=== PATIENT | female | born 1985 | race African-American/Black ===

== ENCOUNTER 2020-06-30 03:30 | Outpatient (REF) | payer MEDICAID, SELFPAY ==
[2020-06-30 15:08] LABS: Abs Immature Grans 0.04 10^3/uL (0.0-0.06); Absolute Basophil Count 0.03 10^3/uL (0.0-0.2); Absolute Eosinophil Count 0.45 10^3/uL (0.0-0.7); Absolute Lymphocyte Count 2.14 10^3/uL (1.2-3.4); Absolute Monocyte Count 0.44 10^3/uL (0.1-0.8); Absolute Neutrophil Count 4.99 10^3/uL (1.2-6.7); Basophils % 0.4; Eosinophils % 5.6; HCT 41.2 % (36.0-46.0); HGB 13.5 g/dL (11.2-15.7); Immature Grans % 0.5; Lymphocytes % 26.5; MCH 26.8 pg (27.0-33.0); MCHC 32.8 % (32.0-36.0); MCV 81.9 fL (80-95); MPV 9.4 fL (8.0-11.0); Monocytes % 5.4; Neutrophils % 61.6; Nucleated RBC 0 %; Platelet Count 305 10^3/uL (130-400); RBC 5.03 10^6/uL (3.93-5.22); RDW 12.7 % (11.7-14.6); RDW-SD 37.7 fL; WBC 8.09 10^3/uL (4.4-10.8)
[2020-06-30 15:24] LABS: Glucose,1 Hr (Glucola) 110 mg/dL (80-140)
[2020-06-30 15:24] LABS: Kit/Specimen SENT
[2020-06-30 17:29] LABS: FREE T4 0.83 ng/dL (0.76-1.46)
[2020-07-01 09:41] LABS: Hepatitis C Ab w Rflx HCV PCR Negative (Negative)
[2020-07-01 09:43] LABS: Hepatitis B Surface Ag Negative (Negative)
[2020-07-01 10:22] LABS: HIV-1/2 Ag & Ab Screen Negative (Negative)
[2020-07-01 11:45] LABS: Rubella IgG Ab (UVM) Positive (See Note); Varicella IgG Antibody Positive (See Note)
[2020-07-02 11:30] LABS: Syphilis Total Ab w/Reflex Nonreactive (Nonreactive)
[2020-07-07 17:50] LABS: Result Summary NEGATIVE; Specimen WB Whole Blood
== END 2020-06-30 03:31 | disposition home or self-care (01) ==
LOC: LBO 03:30
PROVIDERS: Visit Provider Advanced Practice Midwife
DX: Z34.91 Encounter for supervision of normal pregnancy, unspecified, first trimester (principal); Z11.4 Encounter for screening for human immunodeficiency virus [HIV]; Z11.59 Encounter for screening for other viral diseases; Z01.84 Encounter for antibody response examination
CPT/HCPCS: 36415; 82950; 86787; 86803; 86850; 86900; 86901; 87340; 87389; 81220; 84439; 84443; 85025; 86762; 86780

== ENCOUNTER 2020-06-30 16:03 | Outpatient (REF) | payer MEDICAID, SELFPAY ==
--- NOTE | 2020-06-30 14:00 | PAPFT_PTH ---
PATIENT: Douglas Forrester LOC: [facility] U#:[id number] AGE/SX: 34/F ROOM: RE06/30/[address]: Tammie Holt : 1985 BED: DIS: 06/30/2020 SPEC #: [id number] RECD: 06/30/20 18:14 STATUS: ALOK REDaren #: [id number] CONSUELO: 06/30/20 14:[address]: Nata Rogers DEPT: [facility] Cytology RECD BY: Mahnaz Martin Tissues: 1 - CX/ENDOCX FOR PAP SMEARS Procedures: PAP THIN PREP/UVM Screening HPV DNA PROBE Comments: [id number]
[2020-06-30 19:15] LABS: *AMPHETAMINES SCREEN URINE Negative (Negative); *BARBITURATES SCREEN URINE Negative (Negative); *BENZODIAZEPINES SCREEN URINE Negative (Negative); Cannabinoids THC Negative (Negative); Cocaine Screen,Urine Negative (Negative); METHADONE URINE SCREEN Negative (Negative); OPIATES URINE SCREEN Negative (Negative)
[2020-06-30 19:27] LABS: Tricyclic Antidepressants Negative (Negative)
[2020-07-04 15:46] LABS: Chlamydia Result Negative (Negative); GC Result Negative (Negative)
[2020-07-06 12:25] LABS: Buprenorphine Negative ng/mL (Cutoff: 5.0); Norbuprenorphine Negative ng/mL (Cutoff: 2.5)
== END 2020-06-30 16:04 | disposition home or self-care (01) ==
LOC: LBN 16:03
PROVIDERS: Visit Provider Advanced Practice Midwife
DX: Z34.91 Encounter for supervision of normal pregnancy, unspecified, first trimester (principal); N89.8 Other specified noninflammatory disorders of vagina; Z11.3 Encounter for screening for infections with a predominantly sexual mode of transmission; Z12.4 Encounter for screening for malignant neoplasm of cervix; Z36.89 Encounter for other specified antenatal screening; Z11.51 Encounter for screening for human papillomavirus (HPV); R87.810 Cervical high risk human papillomavirus (HPV) DNA test positive
CPT/HCPCS: 80307; 87491; 87591; 88142; 87086; 87480; 87510; 87624; 87660

== ENCOUNTER 2020-09-14 01:52 | Outpatient (CLI) | payer MEDICAID, SELFPAY ==
--- NOTE | 2020-09-14 08:30 | DI.US_ITS ---
Exam(s) US OB 2-3 TRIMESTER EXAM: US OB 2-3 TRIMESTER CLINICAL HISTORY: ,z34.90. TECHNIQUE: Transabdominal obstetrical ultrasound was performed. COMPARISON: No exams were available for comparison FINDINGS: There is a single viable intrauterine gestation with cardiac activity identified-145 bpm. Amniotic fluid: There is a normal amount of amniotic fluid. Placental location: The placenta is anterior grade 1,with no evidence of placenta previa.This is from the tip of the placenta to the internal cervical os is 2.6 cm on today's study Near the level the fundus there is a thin band traversing the amniotic fluid noted. This does not ap pear to impede the movement. ANATOMY: A 3 vessel umbilical cord is seen. A four-chamber cardiac view was obtained. Right and left ventricular outflow tracts were imaged. There are no obvious abnormalities of the spinal column evident. There is no obvious abnormal ity of the anterior abdominal wall. stomach and urinary bladder are identified and there is no evidence of hydronephrosis. No abnormalities of the upper lip region are identified. No evidence of choroid plexus cysts i n the brain. Dating parameters place this at approximately 23 gestational age. BPD measures 22 weeks and 4 days HC measures 23 weeks and 1 day AC measures 23 weeks and 2 days FL measures 23 weeks and 1 day Estimated weight is 569 gm-1 pound 4 ounces Fetus is at the 66th percentile on the Hadlock scale. IMPRESSION:: Single viable intrauterine gestation which is approximately 23 weeks gestational age, i mplying an ABRAN of January 11, 2021. There are no obvious anomalies evident on today's study. There is a thin band of non tiss ue near the fundus of the uterus incidentally noted. This does not appear to impede motion. The placenta is anterior with no evidence of placenta previa. There is a normal amount of amniotic fluid. DATA REPOSITORY:
== END 2020-09-14 02:12 ==
PROVIDERS: Visit Provider Advanced Practice Midwife
DX: Z34.92 Encounter for supervision of normal pregnancy, unspecified, second trimester (principal); Z3A.23 23 weeks gestation of pregnancy
CPT/HCPCS: 76805

== ENCOUNTER 2020-11-14 02:20 | Outpatient (CLI) | payer MEDICAID, SELFPAY ==
[2020-11-14 15:16] LABS: HCT 34.9 % (36.0-46.0); HGB 11.3 g/dL (11.2-15.7); MCH 26.7 pg (27.0-33.0); MCHC 32.4 % (32.0-36.0); MCV 82.5 fL (80-95); MPV 9.6 fL (8.0-11.0); Platelet Count 326 10^3/uL (130-400); RBC 4.23 10^6/uL (3.93-5.22); RDW 12.8 % (11.7-14.6); RDW-SD 38.3 fL; WBC 6.46 10^3/uL (4.4-10.8)
[2020-11-14 15:20] LABS: Glucose,1 Hr (Glucola) 127 mg/dL (80-140)
[2020-11-14 16:05] LABS: TSH 1.04 uIU/mL (0.36-3.74)
== END 2020-11-14 02:21 | disposition home or self-care (01) ==
LOC: LBO 02:20
PROVIDERS: Advanced Practice Midwife; Visit Provider Advanced Practice Midwife
DX: Z34.93 Encounter for supervision of normal pregnancy, unspecified, third trimester (principal); Z3A.31 31 weeks gestation of pregnancy
CPT/HCPCS: 36415; 82950; 85027; 84439; 84443

== ENCOUNTER 2020-12-16 16:34 | Outpatient (REF) | payer MEDICAID, SELFPAY ==
[2020-12-16 21:04] LABS: *AMPHETAMINES SCREEN URINE Negative (Negative); *BARBITURATES SCREEN URINE Negative (Negative); *BENZODIAZEPINES SCREEN URINE Negative (Negative); Cannabinoids THC Negative (Negative); Cocaine Screen,Urine Negative (Negative); METHADONE URINE SCREEN Negative (Negative); OPIATES URINE SCREEN Negative (Negative); Tricyclic Antidepressants Negative (Negative)
[2020-12-22 13:39] LABS: Buprenorphine Negative ng/mL (Cutoff: 5.0)
== END 2020-12-16 16:35 | disposition home or self-care (01) ==
LOC: LBN 16:34
PROVIDERS: Visit Provider Advanced Practice Midwife
DX: Z34.93 Encounter for supervision of normal pregnancy, unspecified, third trimester (principal); Z36.85 Encounter for antenatal screening for Streptococcus B; Z3A.35 35 weeks gestation of pregnancy
CPT/HCPCS: 80307; 87081

== ENCOUNTER 2021-01-06 18:31 | Outpatient (REF) | payer MEDICAID, SELFPAY ==
[2021-01-06 19:18] LABS: PROTEIN 19.9 mg/dL
[2021-01-06 19:24] LABS: COMMENT (LAB VIEW ONLY) 86.86 mg/dL; Prot/Crea Ur Ratio 0.22
== END 2021-01-06 18:32 | disposition home or self-care (01) ==
LOC: LBN 18:31
PROVIDERS: Visit Provider Advanced Practice Midwife
DX: O12.03 Gestational edema, third trimester (principal); Z3A.38 38 weeks gestation of pregnancy
CPT/HCPCS: 82565; 84156

== ENCOUNTER 2021-01-11 15:52 | Outpatient (CLI) | payer MEDICAID, SELFPAY ==
[2021-01-11 16:15] VITALS: BP 132/92; PULSE 101; TEMP 36.8
[2021-01-11 16:17] VITALS: BP 132/92; PULSE 101; TEMP 36.8
[2021-01-11 16:26] VITALS: BP 140/91; PULSE 108
[2021-01-11 16:39] VITALS: BP 134/88; PULSE 99
[2021-01-11 16:40] LABS: HCT 32.4 % (36.0-46.0); HGB 10.3 g/dL (11.2-15.7); MCH 24.8 pg (27.0-33.0); MCHC 31.8 % (32.0-36.0); MCV 78.1 fL (80-95); Platelet Count 326 10^3/uL (130-400); RBC 4.15 10^6/uL (3.93-5.22); RDW 14.2 % (11.7-14.6); RDW-SD 40.1 fL; WBC 6.82 10^3/uL (4.4-10.8)
[2021-01-11 16:53] LABS: ALT 13 U/L (14-59); AST 11 U/L (15-37); Albumin 2.6 g/dL (3.4-5.0); Alkaline Phosphatase 120 U/L (46-116); Anion Gap 10.7 mmol/L (3-11); BUN 4 mg/dL (7-18); Bilirubin, Total 0.3 mg/dL (0.2-1.0); CO2 22.3 mmol/L (21.0-32.0); CREATININE 0.6 mg/dL (0.55-1.02); Calcium 8.5 mg/dL (8.5-10.1); Chloride 106 mmol/L (98-107); Glucose 94 mg/dL (74-106); Potassium 3.5 mmol/L (3.5-5.1); Sodium 139 mmol/L (136-145); Total Protein 6.7 g/dL (6.4-8.2); Uric Acid 6.2 mg/dL (2.6-6.0)
[2021-01-11 17:16] LABS: PROTEIN < 6.0 mg/dL
[2021-01-11 17:19] LABS: COMMENT (LAB VIEW ONLY) 94.22 mg/dL
--- NOTE | 2021-01-11 17:52 | W.OBNST ---
Date of service: 01/11/21 Time of Service: 17:53 NST Evaluation Reason for NST Reasons for Nonstress Test: GESTATIONAL HYPERTENSION Gestational Age Gestational Age in Weeks and Days: 39 Weeks and 5Days Test and Monitor Explained Test/Monitor Explained: Test Explained, Monitor Explained and Patient Verbalized Understanding Vital Signs Blood Pressure: 132/92 Pulse: 101 Temperature: 98.2 F NST Information Date on Monitor: 01/11/21 Time on Monitor: 16:06 Date off Monitor: 01/11/21 Time off Monitor: 16:41 Total Time on Monitor: 35 NST Interventions: PO Hydration and Other NST Evaluation Patient States Movement: Present FHR Baseline: 130 Variability: Moderate 6-25 bpm Accelerations: 15x15 and 10x10 Decelerations: None NST Results: Reactive Note NST Note Note: preeclampsia labs sent and all WNLSindy Ibrahima was instructed to return in 4 days for B.P. check and NST. Signs of preeclampsia reviewed. NST Reviewed and Verified by: Tammie Holt
[2021-01-11 17:54] VITALS: BP 132/92; PULSE 101; TEMP 36.8
== END 2021-01-11 16:50 | disposition home or self-care (01) ==
LOC: BCD 15:53 → OBS 16:03
PROVIDERS: Visit Provider Advanced Practice Midwife
DX: O13.3 Gestational [pregnancy-induced] hypertension without significant proteinuria, third trimester (principal); Z3A.39 39 weeks gestation of pregnancy
CPT/HCPCS: 36415; 80053; 85027; 59025; 82565; 84156; 84550

== ENCOUNTER 2021-01-13 13:25 | Outpatient (CLI) | payer MEDICAID, SELFPAY ==
[2021-01-13] VITALS (8 sets, daily range): BP systolic 116–129; BP diastolic 71–88; PULSE 100–112; TEMP 36.7; O2SAT 99
--- NOTE | 2021-01-13 14:53 | W.OBNST ---
Date of service: 01/13/21 Time of Service: 14:53 NST Evaluation Reason for NST Reasons for Nonstress Test: GESTATIONAL HYPERTENSION Reason for NST Other: Edema Gestational Age Gestational Age in Weeks and Days: 40 Weeks and 0Days Test and Monitor Explained Test/Monitor Explained: Test Explained, Monitor Explained and Patient Verbalized Understanding Vital Signs Blood Pressure: 123/88 Pulse: 100 Temperature: 98.1 F NST Information Date on Monitor: 01/13/21 Time on Monitor: 13:10 Date off Monitor: 01/13/21 Time off Monitor: 14:40 Total Time on Monitor: 90 NST Interventions: None NST Evaluation Patient States Movement: Present FHR Baseline: 125 Variability: Moderate 6-25 bpm Accelerations: 15x15 Decelerations: None Note NST Note Note: serial B.P.s taken and all WNL. No evidence of labor. cervix 1 /50/-2. Induction planned for tomorrow morning if staffing allows. NST Reviewed and Verified by: Tammie Holt
[2021-01-13 15:08] LABS: PROTEIN < 6.0 mg/dL
[2021-01-13 15:09] LABS: COMMENT (LAB VIEW ONLY) 64.81 mg/dL
== END 2021-01-13 14:48 | disposition home or self-care (01) ==
LOC: BCD 13:26 → OBS 13:27
PROVIDERS: Advanced Practice Midwife; Visit Provider Obstetrics & Gynecology
DX: O13.3 Gestational [pregnancy-induced] hypertension without significant proteinuria, third trimester (principal); Z3A.40 40 weeks gestation of pregnancy
CPT/HCPCS: 59025; 82565; 84156

== ENCOUNTER 2021-01-14 14:11 | Inpatient (IN) | payer MEDICAID, SELFPAY ==
[2021-01-14 14:19] VITALS: BP 149/89; BP 149/90; PULSE 114; RESP 16; TEMP 36.6; TEMP 36.7; O2SAT 98
--- NOTE | 2021-01-14 14:21 | HPE_ITS ---
Date of service: 01/14/21 Time of Service: 14:21 Assessment and Plan Assessment and plan (1) Elective induction of labor planned: Status: Acute Assessment and plan: Admit to Center. Comfort measures. cervical ripening options reviewed and will start misoprostol for cervical ripening, Covid- 19 test. Anticipate . (2) Edema during : Status: Acute OB-HPI Labor/Delivery History of Present Illness Reason for Visit: gestional hypertension Chief Complaint: Scheduled Induction of Labor Indication for Induction: Gestational Hypertension. ABRAN Calculator Estimated Delivery Date Method Current WG Current Estimate 01/13/21 Ultrasound #1 40w 1d Other Estimates 12/18/20 LMP (Certain) 43w 6d History of Present Expected Delivery Route/Plan - CNM, oralia Rosario FOB/saravanan - Alexis Powers (has 3 yo daughter in [place]) BG Sandeep Olivera Prefers epidural. Labor support will be FOB, also possibly her mother, Camille, from [place] GBS negative Specific Issues/Plan 1. Low dose ASA @ 12 wks for >10 yrs since last , BMI> 30 & ethnicity- Did not start ASA, enc'ed again to start 08/22/20 1a. Started taking it 09/14/20 2. Desires Corinne and CF testing - Would like gender results mailed to her mother 2a. Corinne LP X3 (gender shared with her Mother per her request) female, CF negative 3. Elevated BMI - Early GTT-110, 1-hr GTT 127 at 28 weeks. 4. Asthma - inhaler e-scribed, PCP enrollment recommended. 5. Negative Pap. with pos. HPV on Pap, discussed with patient. 6. Both pt and FOB and her mother are fully vaccinated. 7. TSH 0.20, T4 0.83, repeat at 28 weeks- T4 1.04/ TSH 0.90. 8. Hgb by Fingerstick 9.0 - serum cbc ordered 8a.repeat fingerstick hgb 11.1 on 12/23 PFSH Medical History (Updated 01/14/21 @ 15:01 by Tammie Holt CNM) Positive test Surgical History S/P appendectomy age 17 Family History (Updated 08/22/20 @ 14:48 by Tammie Holt CNM) Mother Hypertension Maternal Grandmother Hypertension Maternal Aunt Breast cancer maternal great aunt. Social History Smoking risk assessment performed?: No History History 3 Para 1 Hx # Term Pregnancies 1 Multiple births 0 Hx # Pregnancies 0 Ectopic pregnancies 0 AB induced 0 Hx Number of Living Children 1 AB spontaneous 1 Past Pregnancies Del. Date GA/Weeks # Outcome Route Wgt Sex Labor Lgth Anesthes ia Location Prov Complic 02/27/09 40 No Successful vaginal 7 lb 2 oz Female 8 hours [place] Delivery Date: 02/27/09 no medications. hemorrhoids Tammie Holt Meds Allergies and Home Medications Allergies Allergy/AdvReac Type Severity Reaction Status Date / Time animal dander Allergy Severe asthma Verified 01/06/21 10:24 tree and shrub pollen Allergy Severe asthma Verified 01/06/21 10:24 Home Medications Medication Instructions Recorded Confirmed Type lactobacillus combination no.8 3 3,000 mmu cells PO DAILY 06/03/20 01/06/21 History billion cell capsule PNV 153-FA 400 mcg-om3 35 mg-dha 1 tab PO DAILY tab 06/08/20 01/06/21 History 25 mg-epa 5 mg-fish oil chew tablet albuterol sulfate 90 mcg/actuation 2 puff INHALATION QID PRN #8 g 06/30/20 01/06/21 Rx aerosol inhaler aspirin 81 mg tablet,delayed 81 mg PO .QOD tab 09/14/20 01/06/21 History release Exam Physical Exam Vital Signs Reviewed: Yes Constitutional Constitutional: no acute distress Detailed Labor and Delivery Exam Dilation: 1 Effacement (%): 60 station: -1 Cervix position: mid Consistency: soft Macias Score: Cervical Points Exam 0 1 2 3 Dilation Closed 1-2cm 3-4 cm 5-6cm Effacement 0-30% 40-50% 60-70% 80% Consistency Firm Medium Soft Station -3 -2 -1,0 +1,+2 Position Posterior Mid Anterior Amniotic Membrane Status: Intact Fetus A Heart Rate Baseline: 130 Monitor Accelerations: 15 X 15 Monitor Decelerations: None Variability: Moderate (6-25 BPM) Presentation: Vertex Categories: Category I Est. Weight: 7 Respiratory Exam Respiratory Exam: Normal Cardiovascular Exam Cardiovascular Exam: Normal Abdominal Exam Abdominal Exam: Normal Exam Exam: Normal Extremities Exam Extremities Exam: Abnormal (1 + pitting edema) Back/Spine/Pelvis Exam Pelvis Adequate: Yes Skin Exam Skin Exam: Normal Psychiatric Exam Psychiatric Exam: Normal Results Results Group Beta Strep: Negative Blood Type: O+ Rubella Status: Immune Varicella Immunity: Immune Risk Assessment Risk for Shoulder Dystocia Historical/Initial OB: POSITIVE FOR: Pre- BMI>30; NEGATIVE FOR: Pelvic Abnormality, Previous Shoulder Dystocia or Previous Macrosomia 40 Weeks: NEGATIVE FOR: EFW> 4500 gms, Maternal Weight Gain >40lb or Post Dates Increased Risk?: Yes Delivery Plan @ 36wks: Spont labor, Delivery Plan @ 40 wks: induction of labor for gestational hypertension Risk for Pre-Eclampsia Daily Dose ASA Indicated: Yes Date Initiated/Initials: pt to be counseled to start low dose ASA at 12 wks. JK Yes, if one or more: NEGATIVE FOR: Hx Pre-E/Gest HTN, Chronic HTN, Multiple Gestation, Pre-gestational DM, Renal Disease, Systemic Lupus or APA Syndrome Yes, if 2 or more: POSITIVE FOR: >10yr btwn pregnancies, BMI>30 and ethinicty; NEGATIVE FOR: Nulliparity, Age>= 35 yrs, Mother/Sister w/ Pre-E or Previous IUGR Risk for Post- Hemorrhage Initial: NEGATIVE FOR: Multiple Gestation, Previous PPH, Known Clotting Deficiency, Grand Multiparity or Anticoagulation Risks Reviewed Risks Reviewed Upon Admission: Yes
[2021-01-14 14:44] LABS: HCT 35.3 % (36.0-46.0); MCH 24.2 pg (27.0-33.0); MCHC 31.2 % (32.0-36.0); MCV 77.8 fL (80-95); MPV 9.9 fL (8.0-11.0); Platelet Count 361 10^3/uL (130-400); RBC 4.54 10^6/uL (3.93-5.22); RDW 14.4 % (11.7-14.6); RDW-SD 40.4 fL; WBC 6.05 10^3/uL (4.4-10.8)
[2021-01-14] MEDS: miSOPROStol 25 MCG TAB PO (15:11)
[2021-01-14 15:22] LABS: Source Nasal/Nares
[2021-01-14 16:13] LABS: COVID-19 PCR Negative (Negative)
[2021-01-14 18:56] VITALS: BP 133/82; PULSE 123
[2021-01-14 18:57] VITALS: PULSE 106; O2SAT 100
[2021-01-14 19:09] LABS: ALT 11 U/L (14-59); AST 15 U/L (15-37); Albumin 2.7 g/dL (3.4-5.0); Alkaline Phosphatase 130 U/L (46-116); Anion Gap 9.5 mmol/L (3-11); BUN 7 mg/dL (7-18); Bilirubin, Total 0.4 mg/dL (0.2-1.0); CO2 25.5 mmol/L (21.0-32.0); CREATININE 0.7 mg/dL (0.55-1.02); Calcium 9.2 mg/dL (8.5-10.1); Chloride 105 mmol/L (98-107); Glucose 104 mg/dL (74-106); Potassium 3.6 mmol/L (3.5-5.1); Sodium 140 mmol/L (136-145); Total Protein 6.9 g/dL (6.4-8.2); Uric Acid 6.9 mg/dL (2.6-6.0)
--- NOTE | 2021-01-14 20:05 | W.PM.OBNL1 ---
Date of service: 01/14/21 Time of Service: 20:06 Informed Consent Informed Consent: Induction of Labor Pelvic Exam Dilation: 1 Effacement (%): 60 station: -1 Cervix Position: posterior Consistency: soft Vaginal Exam Presentation: Cephalic Contractions Monitor Mode: External Contraction Frequency(min): every 2-5 Contraction Duration(sec): 50-60 Intensity: Mild/Moderate Fetus A Monitor: External (US) Heart Rate Baseline: 130 Presentation: Vertex Variability: Moderate (6-25 BPM) Categories: Category I FHR Rhythm: Regular Accelerations: 15 X 15 Decelerations: None Amniotic Membrane Status: Intact Assessment and Plan Assessment and plan (1) Elective induction of labor planned: Status: Acute Assessment and plan: Rest encouraged. Will plan to resume cervical ripening when staffing ratio allows. Objective Abnormal lab results 01/14/21 01/14/21 Range/Units 14:34 18:22 Hgb 11.0 L (11.2-15.7) g/dL Hct 35.3 L (36.0-46.0) % MCV 77.8 L (80-95) fL MCH 24.2 L (27.0-33.0) pg MCHC 31.2 L (32.0-36.0) % Uric Acid 6.9 H (2.6-6.0) mg/dL ALT 11 L (14-59) U/L Alkaline Phosphatase 130 H (46-116) U/L Albumin 2.7 L (3.4-5.0) g/dL Temp Pulse Resp BP Pulse Ox 97.9 F 106 H 16 133/82 100 01/14/21 14:19 01/14/21 18:57 01/14/21 14:19 01/14/21 18:56 01/14/21 18:57 Laboratory Results WBC 6.05 10^3/uL (4.4-10.8) 01/14/21 14:34 RBC 4.54 10^6/uL (3.93-5.22) 01/14/21 14:34 Hgb 11.0 g/dL (11.2-15.7) L 01/14/21 14:34 Hct 35.3 % (36.0-46.0) L 01/14/21 14:34 MCV 77.8 fL (80-95) L 01/14/21 14:34 MCH 24.2 pg (27.0-33.0) L 01/14/21 14:34 MCHC 31.2 % (32.0-36.0) L 01/14/21 14:34 RDW 14.4 % (11.7-14.6) 01/14/21 14:34 Plt Count 361 10^3/uL (130-400) 01/14/21 14:34 MPV 9.9 fL (8.0-11.0) 01/14/21 14:34 Sodium 140 mmol/L (136-145) 01/14/21 18:22 Potassium 3.6 mmol/L (3.5-5.1) 01/14/21 18:22 Chloride 105 mmol/L (98-107) 01/14/21 18:22 Carbon Dioxide 25.5 mmol/L (21.0-32.0) 01/14/21 18:22 Anion Gap 9.5 mmol/L (3-11) 01/14/21 18:22 BUN 7 mg/dL (7-18) 01/14/21 18:22 Creatinine 0.7 mg/dL (0.55-1.02) 01/14/21 18:22 Estimated GFR/1.73 m2 >= 60.00 (mL/min/1.73m2) 01/14/21 18:22 Glucose 104 mg/dL (74-106) 01/14/21 18:22 Uric Acid 6.9 mg/dL (2.6-6.0) H 01/14/21 18:22 Calcium 9.2 mg/dL (8.5-10.1) 01/14/21 18:22 Total Bilirubin 0.4 mg/dL (0.2-1.0) 01/14/21 18:22 AST 15 U/L (15-37) 01/14/21 18:22 ALT 11 U/L (14-59) L 01/14/21 18:22 Alkaline Phosphatase 130 U/L (46-116) H 01/14/21 18:22 Total Protein 6.9 g/dL (6.4-8.2) 01/14/21 18:22 Albumin 2.7 g/dL (3.4-5.0) L 01/14/21 18:22 COVID-19 Source Nasal/Nares 01/14/21 15:12 SARS-CoV-2 (PCR) Negative (Negative) 01/14/21 15:12 Patient ABO/Rh O Positive 01/14/21 14:34 Antibody Screen NEGATIVE 01/14/21 14:34 Subjective Patient Reports: New Complaints Interval history since last seen: Received 1 dose of misoprostol PO 25 mcg. Having contractions every 2-5 minutes. Ibrahima is breathing through them. She feels that she can sleep through the contractions and would like to try to sleep. Her partner Alexis is with her for support. B.P. 133/82 Results Hemoglobin/Hematocrit: Hgb 11.0 g/dL (11.2-15.7) L 01/14/21 14:34 Hct 35.3 % (36.0-46.0) L 01/14/21 14:34 Abnormal Lab Findings: Abnormal Labs 01/14/21 01/14/21 14:34 18:22 Hgb 11.0 L Hct 35.3 L MCV 77.8 L MCH 24.2 L MCHC 31.2 L Uric Acid 6.9 H ALT 11 L Alkaline Phosphatase 130 H Albumin 2.7 L
--- NOTE | 2021-01-14 21:02 | NUR.NOTE ---
Nursing Note: 1930 pt is wanting to sleep feels she does not need ambien at this time. instructed to ring when she is awake for vitals signs and hearts to be checked
[2021-01-14 21:35] LABS: COMMENT (LAB VIEW ONLY) 69.83 mg/dL; PROTEIN < 6.0 mg/dL
[2021-01-15] VITALS (66 sets, daily range): BP systolic 95–145; BP diastolic 52–93; PULSE 77–129; RESP 12–18; TEMP 36.4–36.9; TEMPC 36.3; O2SAT 97–100
--- NOTE | 2021-01-15 03:46 | W.PM.OBNL1 ---
Date of service: 01/15/21 Time of Service: 03:46 Informed Consent Informed Consent: Induction of Labor Contractions Monitor Mode: External Contraction Frequency(min): every 4-5 minutes Contraction Duration(sec): 60 Intensity: Mild/Moderate Fetus A Monitor: External (US) Heart Rate Baseline: 130 Presentation: Cephalic Variability: Moderate (6-25 BPM) Categories: Category I FHR Rhythm: Regular Accelerations: 15 X 15 Decelerations: None Amniotic Membrane Status: Intact Assessment and Plan Assessment and plan (1) Elective induction of labor planned: Status: Acute Assessment and plan: Ibrahima went back to sleep and the monitor was removed. Will reassess after she awakes (2) Gestational hypertension: Status: Acute Assessment and plan: B.P. WNL Objective Abnormal lab results 01/14/21 01/14/21 Range/Units 14:34 18:22 Hgb 11.0 L (11.2-15.7) g/dL Hct 35.3 L (36.0-46.0) % MCV 77.8 L (80-95) fL MCH 24.2 L (27.0-33.0) pg MCHC 31.2 L (32.0-36.0) % Uric Acid 6.9 H (2.6-6.0) mg/dL ALT 11 L (14-59) U/L Alkaline Phosphatase 130 H (46-116) U/L Albumin 2.7 L (3.4-5.0) g/dL Temp Pulse Resp BP Pulse Ox 97.9 F 100 H 16 119/81 100 01/14/21 14:19 01/15/21 02:37 01/14/21 14:19 01/15/21 02:37 01/14/21 18:57 Laboratory Results WBC 6.05 10^3/uL (4.4-10.8) 01/14/21 14:34 RBC 4.54 10^6/uL (3.93-5.22) 01/14/21 14:34 Hgb 11.0 g/dL (11.2-15.7) L 01/14/21 14:34 Hct 35.3 % (36.0-46.0) L 01/14/21 14:34 MCV 77.8 fL (80-95) L 01/14/21 14:34 MCH 24.2 pg (27.0-33.0) L 01/14/21 14:34 MCHC 31.2 % (32.0-36.0) L 01/14/21 14:34 RDW 14.4 % (11.7-14.6) 01/14/21 14:34 Plt Count 361 10^3/uL (130-400) 01/14/21 14:34 MPV 9.9 fL (8.0-11.0) 01/14/21 14:34 Sodium 140 mmol/L (136-145) 01/14/21 18:22 Potassium 3.6 mmol/L (3.5-5.1) 01/14/21 18:22 Chloride 105 mmol/L (98-107) 01/14/21 18:22 Carbon Dioxide 25.5 mmol/L (21.0-32.0) 01/14/21 18:22 Anion Gap 9.5 mmol/L (3-11) 01/14/21 18:22 BUN 7 mg/dL (7-18) 01/14/21 18:22 Creatinine 0.7 mg/dL (0.55-1.02) 01/14/21 18:22 Estimated GFR/1.73 m2 >= 60.00 (mL/min/1.73m2) 01/14/21 18:22 Glucose 104 mg/dL (74-106) 01/14/21 18:22 Uric Acid 6.9 mg/dL (2.6-6.0) H 01/14/21 18:22 Calcium 9.2 mg/dL (8.5-10.1) 01/14/21 18:22 Total Bilirubin 0.4 mg/dL (0.2-1.0) 01/14/21 18:22 AST 15 U/L (15-37) 01/14/21 18:22 ALT 11 U/L (14-59) L 01/14/21 18:22 Alkaline Phosphatase 130 U/L (46-116) H 01/14/21 18:22 Total Protein 6.9 g/dL (6.4-8.2) 01/14/21 18:22 Albumin 2.7 g/dL (3.4-5.0) L 01/14/21 18:22 Ur Random Creatinine 69.83 mg/dL 01/14/21 13:30 U Random Total Protein < 6.0 mg/dL 01/14/21 13:30 U [place] Prot/Creat Ratio 01/14/21 13:30 COVID-19 Source Nasal/Nares 01/14/21 15:12 SARS-CoV-2 (PCR) Negative (Negative) 01/14/21 15:12 Patient ABO/Rh O Positive 01/14/21 14:34 Antibody Screen NEGATIVE 01/14/21 14:34 Subjective Patient Reports: New Complaints Interval history since last seen: Ibrahima slept well and awoke and ambulated in the hallway. She reports regular contractions which are mild. B.P. 119/81. Uric acid 6.9. CMP, CBC and protein/creatinene ratio WNL. Results Hemoglobin/Hematocrit: Hgb 11.0 g/dL (11.2-15.7) L 01/14/21 14:34 Hct 35.3 % (36.0-46.0) L 01/14/21 14:34 Abnormal Lab Findings: Abnormal Labs 01/14/21 01/14/21 14:34 18:22 Hgb 11.0 L Hct 35.3 L MCV 77.8 L MCH 24.2 L MCHC 31.2 L Uric Acid 6.9 H ALT 11 L Alkaline Phosphatase 130 H Albumin 2.7 L
--- NOTE | 2021-01-15 08:43 | W.PM.OBNL1 ---
Date of service: 01/15/21 Time of Service: 08:43 Informed Consent Informed Consent: Induction of Labor and Risk,Benefits,Alternatives Discussed Pelvic Exam Dilation: 2 Effacement (%): 75 station: -3 Cervix Position: mid Consistency: soft Vaginal Exam Presentation: Cephalic Contractions Monitor Mode: External Contraction Frequency(min): infrequent Intensity: Mild Fetus A Monitor: External (US) Heart Rate Baseline: 135 Variability: Moderate (6-25 BPM) Categories: Category I Accelerations: 15 X 15 Decelerations: None Assessment and Plan Assessment and plan (1) Gestational hypertension: Status: Acute Assessment and plan: BP is stable 130's over 80's or lower, pre-eclampsia labs done yesterday were WNL Qualifiers: Trimester: third trimester Qualified Code(s): O13.3 - Gestational [-induced] hypertension without significant proteinuria, third trimester (2) Elective induction of labor planned: Status: Acute Assessment and plan: A: CNM hand-off from Rehana Holt CNM 35 yo @ 40+2 wks, GBS neg IOL for Gestational HTN at term, stable HD#2 P: Resume misoprostel protocol Anticipate Objective Vital Signs Reviewed: Yes Objective Narrative Objective Narrative: Normotensive this morning, afebrile Category 1 tracing Pt is cheerful and conversational, FOB at bedside for support Received misoprostel 25 mcg PO x1 yesterday Resuming cervical ripening procedures discussed with pt Cvx slightly changed to 2/75% mid pelvis, vtx -3, intact membranes Pain management options reviewed, pt is open to using nitrous, tub, shower, etc She is thinking she may still want regional anesthesia but is comfortable at this time Given cervical change, recommend cervical ripening with miso rather then balloon catheter Subjective Interval history since last seen: Pt states she slept somewhat fitfully during the nightbut feels rested, has had a shower, now having breakfast. Mild contractions had persisted through the night but have nearly gone away at this time. Results Abnormal Lab Findings: Procedure Procedures: Cervical Ripening Cervical Ripening: Misoprostol
[2021-01-15] MEDS: miSOPROStol 50 MCG TAB PO (09:14)
--- NOTE | 2021-01-15 15:05 | W.PM.OBNL1 ---
Date of service: 01/15/21 Time of Service: 15:05 Informed Consent Informed Consent: Regional Anesthesia and Risk,Benefits,Alternatives Discussed Pelvic Exam Dilation: 3 Effacement (%): 80 station: -3 Cervix Position: anterior Consistency: soft Contractions Monitor Mode: External Contraction Frequency(min): q2-3 Contraction Duration(sec): 50-70 Intensity: Moderate Fetus A Monitor: External (US) Heart Rate Baseline: 135 Variability: Moderate (6-25 BPM) Categories: Category I Accelerations: 15 X 15 Decelerations: None Amniotic Membrane Status: Intact Assessment and Plan Assessment and plan (1) Elective induction of labor planned: Status: Acute Assessment and plan: A: Active labor pattern in multip after cervical ripening Gest. 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
--- NOTE | 2021-01-15 15:46 | W.PM.OBNL1 ---
Date of service: 01/15/21 Time of Service: 15:46 Pelvic Exam Dilation: 5 Effacement (%): 100 station: -3 Cervix Position: anterior Consistency: soft Vaginal Exam Presentation: Cephalic Comments: bloody show, uncertain membranes status Contractions Contraction Frequency(min): q2-3 Contraction Duration(sec): 60-80 Intensity: Moderate/Strong Assessment and Plan Assessment and plan (1) Elective induction of labor planned: Status: Acute Assessment and plan: A: Active labor, need for pain management Difficulty establishing IV access Possible SROM as scalp is palpable on SVE, unknown time, bloody show P: Nubain 10 mg SC now Waiting for ED RN to arrive to start IV 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
[2021-01-15] MEDS: Nalbuphine 10 MG/ML AMP SC (15:52)
[2021-01-15] MEDS: Normal Saline Flush 10 ML SYR IVP (15:59)
--- NOTE | 2021-01-15 16:28 | W.ANESPRE ---
General Info Date of Service Date Performed: 01/15/21 Height: 5 ft 2 in Weight: 196 g Body Mass Index (BMI): 0.1 Meds Allergies and Home Medications Allergies Allergy/AdvReac Type Severity Reaction Status Date / Time animal dander Allergy Severe asthma Verified 01/06/21 10:24 tree and shrub pollen Allergy Severe asthma Verified 01/06/21 10:24 Home Medication Medication Instructions Recorded lactobacillus combination no.8 3 3,000 mmu cells PO DAILY 06/03/20 billion cell capsule PNV 153-FA 400 mcg-om3 35 mg-dha 1 tab PO DAILY tab 06/08/20 25 mg-epa 5 mg-fish oil chew tablet albuterol sulfate 90 mcg/actuation 2 puff INHALATION QID PRN #8 g 06/30/20 aerosol inhaler aspirin 81 mg tablet,delayed 81 mg PO .QOD tab 09/14/20 release Current Visit Medications: Current Medications Generic Name Dose Route Start Last Admin Trade Name Freq PRN Reason Stop Dose Admin Fentanyl/Ropivacaine 200 ml 01/15/21 15:15 Fentanyl/Ropivacaine 2 Mcg/Ml And 0.1% 200 Ml [place] EP DIRECTED CHAPARRO Sodium Chloride 500 mls @ 0 mls/hr 01/15/21 14:53 Saline 500ml Bag IV PRN PRN As Directed IV Miscellaneous Supplies 1 each 01/15/21 15:00 Iv Access IV DIRECTED CHAPARRO Sodium Chloride 0 ml 01/15/21 14:53 01/15/21 15:59 Normal Saline Flush 10 Ml Syr IVP 10 ml PRN PRN Administration Terbutaline Sulfate 0.25 mg 01/14/21 14:11 Terbutaline 1 Mg/Ml Vial SC PRN PRN PFSH Active Problems Active Problems: Problem Status Onset Code Gestational hypertension O13.9 Elective induction of labor planned Edema during O12.00 Anemia affecting first O99.019 Asthma J45.909 Z34.90 Positive test Z32.01 Medical History Medical History (Updated 01/15/21 @ 08:58 by Rukhsana Rodríguez) Positive test Surgical History Surgical History S/P appendectomy age 17 Tobacco Smoking/Tobacco Use Status: Never Alcohol Alcohol Intake: never Substance Use Substance use: Never Substance use type: does not use Prental History History 3 Para 1 Hx # Term Pregnancies 1 Multiple births 0 Hx # Pregnancies 0 Ectopic pregnancies 0 AB induced 0 Hx Number of Living Children 1 AB spontaneous 1 Past Pregnancies Del. Date GA/Weeks # Outcome Route Wgt Sex Labor Lgth Anesthesia Location Prov [facility] 02/27/09 40 No Successful vaginal 3231.846 g Female 8 hours [place] Delivery Date: 02/27/09 no medications. hemorrhoids Tammie Holt Vital Signs and Lab Results Vital Signs Most Recent Vital Signs in EMR: Most Recent Vital Signs Temp Pulse Resp BP Pulse Ox 36.5 C 90 18 131/68 100 01/15/21 12:46 01/15/21 13:48 01/15/21 12:46 01/15/21 13:48 01/14/21 18:57 Lab Results Result Diagrams: 01/14/21 14:34 01/14/21 18:22 Blood Type / Crossmatch: Patient ABO/Rh O Positive 01/14/21 14:34 01/14/21 Antibody Screen NEGATIVE 01/14/21 14:34 01/14/21 Complete Blood Count: White Blood Count 6.05 10^3/uL (4.4-10.8) 01/14/21 14:34 01/14/21 Red Blood Count 4.54 10^6/uL (3.93-5.22) 01/14/21 14:34 01/14/21 Hemoglobin 11.0 g/dL (11.2-15.7) L 01/14/21 14:34 01/14/21 Hematocrit 35.3 % (36.0-46.0) L 01/14/21 14:34 01/14/21 Platelet Count 361 10^3/uL (130-400) 01/14/21 14:34 01/14/21 Complete Metabolic Panel: Sodium Level 140 mmol/L (136-145) 01/14/21 18:22 01/14/21 Potassium Level 3.6 mmol/L (3.5-5.1) 01/14/21 18:22 01/14/21 Chloride Level 105 mmol/L (98-107) 01/14/21 18:22 01/14/21 Carbon Dioxide Level 25.5 mmol/L (21.0-32.0) 01/14/21 18:22 01/14/21 Blood Urea Nitrogen 7 mg/dL (7-18) 01/14/21 18:22 01/14/21 Creatinine 0.7 mg/dL (0.55-1.02) 01/14/21 18:22 01/14/21 Estimated GFR/1.73 m2 >= 60.00 (mL/min/1.73m2) 01/14/21 18:22 01/14/21 Calcium Level 9.2 mg/dL (8.5-10.1) 01/14/21 18:22 01/14/21 Albumin 2.7 g/dL (3.4-5.0) L 01/14/21 18:22 01/14/21 Glucose Level 104 mg/dL (74-106) 01/14/21 18:22 01/14/21 Liver Function Panel: Alanine Aminotransferase (ALT/SGPT) 11 U/L (14-59) L 01/14/21 18:22 01/14/21 Aspartate Amino Transf (AST/SGOT) 15 U/L (15-37) 01/14/21 18:22 01/14/21 Coagulation Panel: No Data to Display Cardiac Panel: No Data to Display Arterial Blood Gas: No Data to Display Venous Blood Gas: No Data to Display Pancreas Panel: No Data to Display Thyroid Panel: No Data to Display Infectious Disease: Coronavirus (COVID-19)(PCR) Negative (Negative) 01/14/21 15:12 01/14/21 Coronavirus 2019 Source Nasal/Nares 01/14/21 15:12 01/14/21 Blood Cultures: No Data to Display Toxicology Panel: No Data to Display Panel: No Data to Display Anesthesia Assessment and Plan Anesthesia History Personal History: No History of Anesthesia Complications Family History: No Family History of Anesthesia Complications Exercise Tolerance Exercise Tolerance: Metabolic Equivalents>4 Cardiac & Pulmonary Exam Cardiac Exam: Normal S1/S2 Heart Sounds Pulmonary Exam: Clear Bilateral Breath Sounds Airway Exam Known Difficult Airway: No Mallampati Class: 1 Mouth Opening: Normal (> 3cm) Thyromental Distance: Greater than 3 cm Neck Range of Motion: Full ROM Neck Circumference: Normal Teeth Condition: Normal Dentition ASA Classification ASA Score: ASA 2 Emergency Case?: No NPO Status NPO Status: NPO Clears >2 hours, Solids >8 hours Status Status: Confirmed Anesthesia Plan Resuscitation Status: Full Code Anesthesia Technique: Epidural Anesthesia (Intrathecal) Airway Planned: Natural Airway Monitors Used: Standard Monitors
[2021-01-15] MEDS: fentaNYL 100 MCG/2 ML VIAL (17:05)
[2021-01-15] MEDS: Bupivacaine 0.25% Pres-Free 10 ML VIAL (17:05)
[2021-01-15] MEDS: Lactated Ringers 500 ML IV (17:24)
--- NOTE | 2021-01-15 17:30 | W.ANESPROC ---
Intrathecal Analgesia Date Performed: 01/15/21 Procedure Time: 17:31 Requesting Provider: Rukhsana Rodríguez Procedure Location: Obstetrics Reason Performed: Labor Intrathecal Analgesia Standard Monitors Applied: Blood Pressure and SpO2 Patient Position: Sitting Timeout Performed: Yes Sedation Given (Indicate Dose Given): No Sedation given Patient Mental Status: Awake Sterility: Hand Hygiene, Surgical Cap, Surgical Mask, Sterile Gloves, Sterile Drape/Sheet and Eye Protection Placement Site: L2-L3 Interspace Spinal Needle Type: Alisson 25 Gauge Needle Length: 3.5 Inch Spinal Procedure: Site Prepped, 1% Lidocaine to skin and subcutaneous tissue with 25G needle, Introducer Needle Used, Spinal Needle Placed, Negative Heme, Positive CSF Flow and Medication Injected Paresthesia: None Spinal Local Anesthetic (Indicate Dose Given): Bupivacaine 0.25% PF (ml) Dose:: 1 cc Additives (Indicate Dose Given): Fentanyl PF Dose:: 15 mcg and Duramorph PF Dose:: 200 mcg Ultrasound: Not Used Number of Attempts (See previous attempts in note section): 2 Procedure Tolerated: No Complications and Patient tolerated well Procedure Outcome: Successful Performed By: Saira Other (not listed above): Hypotension treated with 10 + 10 + 5 mg Ephedrine IVP
--- NOTE | 2021-01-15 17:37 | PGE_ITS ---
Date of service: 01/15/21 Time of Service: 17:39 Informed Consent Informed Consent: Augmentation of Labor, Regional Anesthesia and Risk,Benefits,Alternatives Discussed Pelvic Exam Dilation: 6 Effacement (%): 100 station: -3 Cervix Position: mid Consistency: soft Vaginal Exam Presentation: Cephalic Contractions Monitor Mode: External Contraction Frequency(min): q3-4 Contraction Duration(sec): 50-70 Intensity: Moderate Fetus A Monitor: External (US) Heart Rate Baseline: 130 Presentation: Cephalic Variability: Minimal (1-5 BPM) Categories: Category II (s/p intrathecal anesthesia induction and subQ nubain injection) CategoryII Plan of Care: Observation, Reassess and Continuous Monitoring/Observation Decelerations: Prolonged (3 min decel to 75-85 bpm immediately following intrathecal induction and maternal hypotension to 95/52, FSE placed, resolved with improvement in maternal BP) Amniotic Membrane Status: Ruptured Rupture Method: Spontaneous Amniotic Fluid: Bloody and Clear Amount: unknown time Date of Membrane Rupture: 01/15/21 Assessment and Plan Assessment and plan (1) Elective induction of labor planned: Status: Acute Assessment and plan: A: Intrathecal anesthesia after nubain subQ given earlier Episode of maternal hypotension with associated FHT decel BP normalized with admin of ephedrine by STRUCTURES ASSEMBLER, FSE applied by CNM, FHT back to baseline and stable Bloody show noted with cvx @ 6/100% vtx -3 P: Pt sleeping, continuous EFM Consider pitocin augmentation if contractions decrease and FHT remains stable Dr. Salamanca notified of pt status and interventions Anticipating Objective Vital Signs Reviewed: Yes Subjective Interval history since last seen: Intrathecal has given good relief, pt sleeping in LLP Interventions Pain Management Interventions: Intrathecial Start Date: 01/15/21 , Intrathecal Start Time: 17:30 , . Procedure Procedures: Scalp Electrode Placement , indication for electrode: FHT deceleration
[2021-01-15] MEDS: Oxytocin/Normal Saline 30 UNIT/500 ML BAG 2 UNITS IV (17:52)
--- NOTE | 2021-01-15 19:11 | W.PM.OBNL1 ---
Date of service: 01/15/21 Time of Service: 18:55 Pelvic Exam Dilation: 7 Effacement (%): 100 station: -2 Cervix Position: mid Consistency: soft Vaginal Exam Presentation: Cephalic Contractions Monitor Mode: External Contraction Frequency(min): q 2 Contraction Duration(sec): 60-70 Intensity: Moderate Fetus A Monitor: External (US) Heart Rate Baseline: 140 Presentation: Cephalic Variability: Minimal (1-5 BPM) Categories: Category II Decelerations: Prolonged (2-4 minute decel x2, resolved with maternal position change, 02 per mask, IVF bolus of 500 cc, ) Amniotic Membrane Status: Ruptured Amniotic Fluid: Bloody Assessment and Plan Assessment and plan (1) Non-reassuring electronic monitoring tracing: Status: Acute (2) Elective induction of labor planned: Status: Acute Assessment and plan: A: Pitocin at 4 mu/min Prolonged decel, responsive to intrauterine resuscitation measures Cvx @ 7/100% vtx -2 r/o placental abruption P: Pitocin turned off Dr. Cheikh walker FHT recovered & stable at baseline w/H&K position, 02 per mask, IVF bolus Objective Vital Signs Reviewed: Yes Objective Narrative Objective Narrative: Pt is beginning to feel contractions in lower abd but appears comfortable Normotensive, afebrile FHT stabilized after intrauterine resus measures Pitocin was at 4 mu/min, turned off Greater then expected bloody show continues Subjective Interval history since last seen: Good relief from intrathecal, dozing Results Abnormal Lab Findings:
[2021-01-15] MEDS: AZITHROMYCIN 500 MG in Normal Saline 250 ML 250 MG IVPB (19:45)
[2021-01-15] MEDS: Lactated Ringers 1,000 ML 125 ML IV ×2 (19:57→20:51)
[2021-01-15] MEDS: ceFAZolin 2 GM/50 ML BAG IVPB (20:03)
--- NOTE | 2021-01-15 20:21 | PLAC_PTH ---
PATIENT: Douglas Forrester LOC: OBS U#:[id number] AGE/SX: 35/F ROOM: OBS.305 RE01/14/[address]: Tammie Holt : 1985 BED: A DIS: 01/17/2021 SPEC #: [id number] RECD: 01/16/21 12:46 STATUS: SOUAndrew REQ #: [id number] CONSUELO: 01/15/21 20:[address]: Renetta Salamanca DEPT: Surgical Specimen RECD BY: Mahnaz Martin ENTERED: 01/16/21 12:47 SP TYPE: PLAC OTHR DR: Tammie Holt Tissues: 1 - PLACENTA (3RD TRIMESTER) Procedures: GROSS AND MICRO LEVEL 5 Comments: [id number]
[2021-01-15 20:52] LABS: BE Umbilical Arterial -7 mmol/L; pCO2 Umbilical Arterial 82 mmHg (34-78)
[2021-01-15 20:54] LABS: pO2 Umbilical Arterial < 13 mmHg (6-31)
[2021-01-15 20:56] LABS: pH Umbilical Arterial 7.07 (7.18-7.38)
[2021-01-15 20:57] LABS: BE Umbilical Venous -5 mmol/L; pCO2 Umbilical Venous 63 mmHg (30-63); pH Umbilical Venous 7.18 (7.25-7.45)
[2021-01-15 20:58] LABS: pO2 Umbilical Venous < 13 mmHg (17-41)
--- NOTE | 2021-01-15 21:10 | W.PM.OBCSECT ---
Date of service: 01/15/21 Time of Service: 21:10 Operative Note Operative Note Delivery Method: Unscheduled STAT: No DATE OF PROCEDURE: 01/15/21 PRE-OP DIAGNOSES: Nonreassuring heart tones with intermittent bradycardia, suspec POST-OP DIAGNOSES: same Delivered a viable female infant with Apgars of 8 and 9. PROCEDURE: Primary low transverse section SURGEON: Renetta Salamanca Telesales Specialist: Michael Turner Anesthesia: spinal Estimated blood loss (mL): 525 Pathology: other (Placenta) Complications: None Patient was transported to: floor Patient's condition: stable Indications: Patient is a 35-year-old female who is been under the care of the midwives. She had a scheduled labor induction at 40 weeks due to gestational hypertension. She is 2 para 1. She was admitted for cervical ripening via misoprostol. She had onset of labor and at some point spontaneous rupture of membranes. She did have an episode of bradycardia throughout which had moderate variability. With scalp lead, fluid bolus, position changes, oxygen placement heart tones returned to the baseline. At that point she had progressed to approximately 6 cm. She did receive Pitocin augmentation and at approximately 4 milliunits of Pitocin a subsequent deceleration was noted. I was called to evaluate the patient due to nonreassuring status. Risk benefits and alternatives of section were explained to the patient after full evaluation and review of strip. She was found to be 6 to 7 cm by my exam and remote from delivery. With all of these factors including intermittent bradycardia, moderate port-wine appearing fluid and frequent regular contractions consistent with tachysystole clinical impression was that of a mild abruption. We discussed the possibilities of delivery vaginally versus section and due to the fact that she is remote from delivery with category 2 strip risk benefits and alternatives of section of been explained to the patient. She understood the risk of infection, bleeding, injury to surrounding organs, risk of anesthesia and full informed consent was obtained. She was taken the operating room with an IV running where she was then placed in the seated position. heart tones were checked prior to spinal placement and after. Spinal anesthesia was administered tested and found to be adequate. heart tones on completion of the spinal were approximately 95. At this point, the patient was prepped and draped in the usual sterile fashion. Vaginal prep had been performed. Hall catheter inserted. And sterile drape placed. Pfannenstiel skin incision was made carried onto the underlying fascia which was nicked in the midline and fascial incision extended laterally. The rectus muscles were identified split in the midline and the peritoneum identified tented up and entered sharply. Peritoneal incision was then extended superiorly and inferiorly and the bladder blade was inserted. The vesicouterine peritoneum was identified tented up and entered sharply and the bladder flap was created. Bladder blade was inserted. A low transverse uterine incision was made with a scalpel and extended bluntly laterally. vertex was deep within the pelvis and with a moderate amount of effort the vertex was elevated through the uterine incision. There is no evidence of nuchal cord. Shoulders followed with ease. Three-vessel cord was noted clamped x2 and cut and the infant was then handed off to the waiting computer network support specialist. At this point cord blood sample and cord blood gases were both obtained and the placenta delivered spontaneously through the uterine incision. Placenta sent for examination. At this point the uterus was cleared of all clot and debris and the uterine incision was closed with 2 layers, first of 0 Monocryl suture in a running locked fashion and second layer imbricating. Uterine incision was hemostatic. Abdomen was then irrigated with copious amounts of normal saline and found to be hemostatic. As of note, there was moderately blood tinged urine. Careful inspection of the bladder, bladder flap, and all peritoneal surfaces were undertaken. There was no evidence of trauma to the bladder, no bladder lacerations were identified or suspected due to distance of uterine incision and bladder flap creation. At this point the fascial incision was closed using 0 Vicryl suture subcutaneous tissue irrigated and subcu space reapproximated with 3-0 Vicryl in a simple interrupted fashion. Skin edges reapproximated with 4-0 Monocryl suture in a subcuticular fashion. Steri-Strips and sterile dressing were placed. Uterus was firm and 2 cm below the umbilicus upon completion of the procedure. At the termination of the procedure urine was clearing to a straw yellow-colored. Patient was taken to the floor in stable condition. EBL: 525 mL Fluids: Crystalloid per anesthesia Pathology: Placenta for examination Complications: None apparent Findings: Delivery of viable female infant with Apgars 8 and 9. Suspected marginal abruption.
--- NOTE | 2021-01-15 21:13 | W.ANESPOSTOP ---
Postoperative Evaluation Date, Time and Location Date Performed: 01/15/21 Time Performed: 21:31 Patient Location: Obstetrics Vital Signs Most Recent Imported Vital Signs: Most Recent Vital Signs Temp Pulse Resp BP Pulse Ox 36.5 C 81 18 138/74 100 01/15/21 18:14 01/15/21 19:45 01/15/21 12:46 01/15/21 19:22 01/15/21 19:45 Most Recent Manually Entered Vital Signs: Adult Blood Pressure: 95/54 Heart Rate: 97 Respirations: 12 Oxygen Saturation (%): 98 Temperature (C): 36.3 C Pain Score (0-10 Scale): 0 Pain Score Most Recent Pain Score: Most Recent Pain Score Pain Level 0 01/14/21 14:19 Assessment Mental Status: Awake (Alert & Oriented to Patient Baseline) Airway and Respiratory Function: Patent airway with normal (patient baseline) respiratory exam Cardiovascular Function: Hemodynamically Stable Hydration Status: Adequately Hydrated Nausea & Vomiting: No Nausea or Vomiting Pain: Pt. Denies Any Pain Peripheral Nerve Block: Patient did not receive a nerve block
--- NOTE | 2021-01-15 21:18 | OBCE_ITS ---
Date of service: 01/15/21 Time of Service: 21:18 Assessment and Plan Assessment and plan (1) Gestational hypertension: Status: Acute Assessment and plan: Patient is in the process of labor induction due to gestational hypertension, however had intolerance of labor with recurrent episodes of bradycardia and episodes of mild tachysystole along with blood-tinged amniotic fluid consistent with the possibility of mild abruption. Patient will undergo primary section Qualifiers: Trimester: third trimester Qualified Code(s): O13.3 - Gestational [-induced] hypertension without significant proteinuria, third trimester (2) Non-reassuring electronic monitoring tracing: Status: Acute History of Present Illness History of Present Illness Chief Complaint: Recurrent bradycardia Narrative: I was asked to evaluate this patient who is a 35-year-old 2 para 1 at 40 weeks and 2 days. She had labor induction due to gestational hypertension. She had cervical ripening performed and subsequent onset of labor. She did receive intrathecal for pain control. She had spontaneous r upture of membranes and had blood-tinged fluid. During the course of her labor she had 3 distinct episodes of bradycardia with good return to baseline with position changes and alterations in augmentation, IV hydration, O2. At the time of my evaluation patient was noted to be is approximately 6 to 7 cm dilated and remote from delivery with recurrent episodes of bradycardia and intolerance of labor. Risk benefits and alternatives of operative delivery by section were explained to the patient and her family and with shared decision making, decision was made to proceed to section. Consults Consult date: 01/15/21 Requesting physician: Rukhsana Rodríguez Review of Systems Narrative: During my presentation, patient had pain appropriate with contractions. No chest pain, shortness of breath, she was noting good activity. She had no other constitutional symptoms Cardiovascular Cardiovascular: Reports system reviewed and no additional complaints, except as documented Respiratory Respiratory: Reports system reviewed and no additional complaints, except as documented Gastrointestinal Gastrointestinal: Reports system reviewed and no additional complaints, except as documented [facility] Medical History Positive test Surgical History S/P appendectomy age 17 Family History Mother Hypertension Maternal Grandmother Hypertension Maternal Aunt Breast cancer maternal great aunt. Social History Smoking/Tobacco Use Status: Never Smoking risk assessment performed?: Yes Alcohol Intake: never Drug use: Never Substance use type: does not use Do you feel safe at home: Yes Do you feel safe in your relationship?: Yes History History 3 Para 1 Hx # Term Pregnancies 1 Multiple births 0 Hx # Pregnancies 0 Ectopic pregnancies 0 AB induced 0 Hx Number of Living Children 1 AB spontaneous 1 Past Pregnancies Del. Date GA/Weeks # Outcome Route Wgt Sex Labor Lgth Anesthes ia Location Prov [facility] 02/27/09 40 No Successful vaginal 7 lb 2 oz Female 8 hours [place] Delivery Date: 02/27/09 no medications. hemorrhoids Tammie Holt Exam Const General: uncomfortable, not in acute distress and not anxious Orientation: alert and oriented x3 Other: Pain appropriate for labor Eyes General: appearance normal, both eyes and all related structures Resp Effort & Inspection: normal respiratory effort Cardio Rate: regular rate Rhythm: regular rhythm Manual OB Exam: dilated 6, effaced 75% and station -2 Amniotic Fluid: bloody Extrem General: no clubbing, cyanosis or edema Results Last Vital Signs Temp 97.7 F 01/15/21 18:14 Pulse 81 01/15/21 19:45 Resp 18 01/15/21 12:46 BP 138/74 01/15/21 19:22 Pulse Ox 100 01/15/21 19:45 Labs Result diagrams: 01/14/21 14:34 01/14/21 18:22 Labs: Laboratory Results - last 24 hr 01/14/21 01/15/21 01/15/21 13:30 20:21 20:21 Cord ABG pH 7.07 L* Cord ABG pCO2 82 H Cord ABG pO2 < 13 Cord ABG Base Excess -7 Cord VBG pH 7.18 L Cord VBG pCO2 63 Cord VBG pO2 < 13 L Cord VBG Base Excess -5 Ur Random Creatinine 69.83 U Random Total Protein < 6.0 U [place] Prot/Creat Ratio
[2021-01-15] MEDS: Ketorolac 30 MG/ML VIAL 15 MG IVP (22:23)
[2021-01-15] MEDS: Ondansetron 4 MG/2 ML VIAL IVP (23:03)
--- NOTE | 2021-01-15 23:57 | NUR.NOTE ---
Nursing Note: IV 20 ga in R AC discontinued. No longer needed since a new IV was initiated in the OR. R AC area was bothersome to patient. Site WNL.
[2021-01-16 01:00] VITALS: PULSE 90; RESP 18; O2SAT 99
[2021-01-16] MEDS: Lactated Ringers 1,000 ML 120 ML IV (02:15)
[2021-01-16 03:12] VITALS: BP 130/70; PULSE 98; RESP 18; TEMP 36.6; O2SAT 99
[2021-01-16] MEDS: Ketorolac 30 MG/ML VIAL 15 MG IVP ×3 (04:08→16:16)
[2021-01-16 07:32] LABS: Abs Immature Grans 0.05 10^3/uL (0.0-0.06); Absolute Basophil Count 0.02 10^3/uL (0.0-0.2); Basophils % 0.1; HGB 10.6 g/dL (11.2-15.7); Immature Grans % 0.3; Lymphocytes % 6.4; MCHC 31.2 % (32.0-36.0); MCV 77.1 fL (80-95); MPV 10.1 fL (8.0-11.0); Monocytes % 5.6; Neutrophils % 87.6; Nucleated RBC 0 %; Platelet Count 305 10^3/uL (130-400); RBC 4.41 10^6/uL (3.93-5.22); RDW 14.4 % (11.7-14.6); RDW-SD 39.8 fL
[2021-01-16 07:34] LABS: Absolute Lymphocyte Count 0.99 10^3/uL (1.2-3.4); Absolute Monocyte Count 0.86 10^3/uL (0.1-0.8); Absolute Neutrophil Count 13.49 10^3/uL (1.2-6.7)
--- NOTE | 2021-01-16 08:58 | OBPPV_ITS ---
Date of service: 01/16/21 Time of Service: 08:58 Assessment and Plan Assessment and plan (1) Status post primary low transverse section: Status: Acute Assessment and plan: Patient is postoperative day #1 status post primary low transverse section. Doing well. Hall catheter will come out today. Continue progressive ambulation. Regular diet as tolerated. Breast- feeding without difficulty. Anticipate discharge home in the next 24 to 48 hours. Continue to monitor Subjective Subjective Interval history: Patient seen and examined postoperative day #1 status post primary low transverse section. She is doing well. She has not yet been up to ambulate. Hall catheter in place draining clear yellow urine. She has good pain control and is tolerating a regular diet. Patient comments: Pain well controlled and Tolerating diet [place] baby status: Doing well, Nursing well and Strong Bonding Observed Exam Physical Exam Vital signs: Temp Pulse Resp BP Pulse Ox 97.9 F 98 H 18 130/70 99 01/16/21 03:12 01/16/21 03:12 01/16/21 03:12 01/16/21 03:12 01/16/21 03:12 Constitutional Constitutional: no acute distress Neck Exam Neck Exam: Normal Cardiovascular Exam Cardiovascular Exam: Normal Abdominal Exam Abdomen: Tender Fundal Exam Fundus: Below Umbilicus and Firm Extremities Exam Extremity Exam: Normal; negative Calf Tenderness and Edema Skin Exam Skin Exam: Normal Psychiatric Exam Psychiatric Exam: Normal Results Hemoglobin/Hematocrit: Hgb 10.6 g/dL (11.2-15.7) L 01/16/21 07:12 Hct 34.0 % (36.0-46.0) L 01/16/21 07:12 Abnormal Lab Findings: Abnormal Labs 01/14/21 01/14/21 01/15/21 14:34 18:22 20:21 WBC Hgb 11.0 L Hct 35.3 L MCV 77.8 L MCH 24.2 L MCHC 31.2 L Absolute Neutrophils Absolute Lymphocytes Absolute Monocytes Cord ABG pH 7.07 L* Cord ABG pCO2 82 H Cord VBG pH Cord VBG pO2 Uric Acid 6.9 H ALT 11 L Alkaline Phosphatase 130 H Albumin 2.7 L 01/15/21 01/16/21 20:21 07:12 WBC 15.40 H Hgb 10.6 L Hct 34.0 L MCV 77.1 L MCH 24.0 L MCHC 31.2 L Absolute Neutrophils 13.49 H Absolute Lymphocytes 0.99 L Absolute Monocytes 0.86 H Cord ABG pH Cord ABG pCO2 Cord VBG pH 7.18 L Cord VBG pO2 < 13 L Uric Acid ALT Alkaline Phosphatase Albumin
[2021-01-16 09:00] VITALS: BP 130/85; PULSE 96; O2SAT 99
[2021-01-16 16:10] VITALS: BP 131/91; PULSE 98; RESP 16; TEMP 36.8; O2SAT 100
[2021-01-16] MEDS: Normal Saline Flush 10 ML SYR IVP (16:18)
[2021-01-16 19:30] VITALS: BP 146/91; PULSE 98; RESP 16; TEMP 37.2; O2SAT 98
[2021-01-16 23:32] VITALS: BP 128/85; PULSE 98; RESP 18; TEMP 37; O2SAT 98
[2021-01-17] MEDS: Acetaminophen 325 MG TAB 650 MG PO (00:35)
[2021-01-17] MEDS: Ibuprofen 600 MG TAB PO ×2 (00:36→08:30)
[2021-01-17 03:05] VITALS: BP 134/92; PULSE 93; RESP 18; TEMP 37.1; O2SAT 99
[2021-01-17 08:00] VITALS: BP 141/89; PULSE 118; RESP 16; TEMP 36.6; O2SAT 100
[2021-01-17] MEDS: oxyCODONE 5 mg/Acetaminophen 325 mg TAB PO ×2 (08:30→11:35)
--- NOTE | 2021-01-17 09:00 | DSE_ITS ---
Date of service: 01/17/21 Time of Service: 09:00 Discharge Plan Disposition Patient Disposition: HOME Condition: Fair Discharge Details Reason For Visit: gestional hypertension Admit Date/Time: 01/14/21 14:11 Admit Provider: Tammie Holt Attending Provider: Tammie Holt Primary Care Provider: Unknown,Unknown Hospital Course Hospital Course: Patient is a 35-year-old female who is been under the care of the [facility]. She had a scheduled labor induction at 40 weeks due to gestational hypertension. She had progressed to approximately 6 cm with Pitocin augmentation and a max of 4 milliunits/min of Pitocin when nonreassuring status was noted. There was intermittent bradycardia, moderate port-wine appearing amniotic fluid uterine contractions consistent wit mild abruption. Post op course was uncomfortable. Discharged to home on POD2. Successfully and pain well controlled. Home Meds and New Rx's Prescriptions: No Action albuterol sulfate 90 mcg/actuation HFA aerosol inhaler 2 puff inhalation QID PRN (Reason: shortness of breath or wheezing) Qty: 8 RF: 3 Adult Probiotic 3 billion cell capsule 3,000 mmu cells PO DAILY RF: 0 Gummies 400 mcg-35 mg- 25 mg-5 mg tablet,chewable 1 tab PO DAILY RF: 0 aspirin [Adult Low Dose Aspirin] 81 mg tablet,delayed release (DR/EC) 81 mg PO .QOD RF: 0 Discharge Instructions Additional Instructions: Take Percocet one tablet of 5/325mg every 6 hours as needed for pain not relieved by Ibuprofen or Acetaminophen. You may take Ibuprofen while taking the Acetaminophen. However do not take Acetaminophen with taking the Percocet since Percocet has Acetaminophen in it. Make an appointment to see Dr. Salamanca at [facility] in 2 weeks for a incision check. Make an appointment to see the CNMs in 6 weeks. Stand Alone Forms: BC Instructions, BC Discharge Instruc Activity:: Activity as Tolerated Equipment/Supplies:: No Equipment Needed Diet:: As Tolerated Discharge Orders Discharge Orders: Discharge Order (Routine); Ordered 01/17/21 Ordered By: Tamiko Jordan OB:DS Summary Summary Episiotomy Description: None Contraception Discussed Contraception Discussed: No, Gender-Baby A: Female weight: 7 lb 6.521 oz Status at Discharge Functional status at discharge: independent ambulation Overall status at discharge: patient is progressing back to baseline Mental Status: mental status grossly normal Speech and Movement: speech and movement normal Mood: congruent mood Affect: normal affect Exam Physical Exam Vital signs: Temp Pulse Resp BP Pulse Ox 98.8 F 93 H 18 134/92 H 99 01/17/21 03:05 01/17/21 03:05 01/17/21 03:05 01/17/21 03:05 01/17/21 03:05 Vital Signs Reviewed: Yes Narrative: POD2 LTCS for non-reassuring FHR. Postop course has been uncomplicated. Pt reports NSAIDs are effective for pain control. OK with discharge home today. Constitutional Constitutional: no acute distress and cooperative HEENT Exam HEENT Exam: Not Done Neck Exam Neck Exam: Normal Respiratory Exam Respiratory Exam: Normal Cardiovascular Exam Cardiovascular Exam: Normal Abdominal Exam Abdomen: Tender (along incision line) Fundal Exam Fundus: Below Umbilicus Rectal Exam Rectal Exam: Not Done Extremities Exam Extremity Exam: Normal Back/Spine/Pelvis Exam Back Exam: Not Done Skin Exam Skin Exam: Normal Neurological Exam Neurological Exam: Normal Psychiatric Exam Psychiatric Exam: Normal [facility] Medical History Positive test Surgical History (Updated 01/17/21 @ 09:02 by Tamiko Jordan MD) S/P appendectomy age 17 Status post primary low transverse section 01/15/21. Abruptio Placentae. Family History Mother Hypertension Maternal Grandmother Hypertension Maternal Aunt Breast cancer maternal great aunt. Social History Smoking/Tobacco Use Status: Never Smoking risk assessment performed?: Yes Alcohol Intake: never Drug use: Never Substance use type: does not use Do you feel safe at home: Yes Do you feel safe in your relationship?: Yes History History 3 Para 1 Hx # Term Pregnancies 1 Multiple births 0 Hx # Pregnancies 0 Ectopic pregnancies 0 AB induced 0 Hx Number of Living Children 1 AB spontaneous 1 Past Pregnancies Del. Date GA/Weeks # Outcome Route Wgt Sex Labor Lgth Anesthes ia Location Prov Complic 02/27/09 40 No Successful vaginal 7 lb 2 oz Female 8 hours [place] Delivery Date: 02/27/09 no medications. hemorrhoids Tammie Holt DS: Data Vitals/I&O Vitals and I&O: Vital Signs Temperature 98.8 F 01/17/21 03:05 Temperature Source Oral 01/15/21 18:14 Pulse 93 H 01/17/21 03:05 Pulse Rhythm Regular 01/16/21 20:20 Respiratory Rate 18 01/17/21 03:05 Respiratory Depth Normal 01/15/21 23:00 Blood Pressure 134/92 H 01/17/21 03:05 Blood Pressure Mean 106 01/17/21 03:05 Pulse Oximetry 99 01/17/21 03:05 Oxygen Delivery Method Room Air 01/15/21 23:25 Oxygen Flow Rate 0 01/14/21 14:19 Pain Level 0 01/17/21 03:05 Comment 01/15/21 23:25 Intake & Output 01/16/21 01/16/21 01/17/21 11:59 23:59 11:59 Intake Total 1950 / 1950 Output Total 805 / 1505 700 / 1505 Balance 1145 / 445 -700 / 445 Intake: IV 1700 / 1700 Oral 250 / 250 Output: Urine 775 / 1475 700 / 1475 Blood 30 / 30 Other: Urine Color Yellow Urine Appearance Clear Comment Initiated by Dr. Salamanca in the OR. See OR documentation.
[2021-01-17] MEDS: Docusate Sodium 100 MG CAP PO (11:35)
== END 2021-01-17 12:11 | disposition home or self-care (01) | DRG 788 ==
PROVIDERS: Obstetrics & Gynecology; Admitting Provider Advanced Practice Midwife; Visit Provider Advanced Practice Midwife
PROC: 10D00Z1 Extraction of Products of Conception, Low, Open Approach (ICD-10-PCS; CPT 59514; principal; 2021-01-15 19:35)
DX: O13.4 Gestational [pregnancy-induced] hypertension without significant proteinuria, complicating childbirth (principal); O76 Abnormality in fetal heart rate and rhythm complicating labor and delivery; Z37.0 Single live birth; O99.52 Diseases of the respiratory system complicating childbirth; Z3A.40 40 weeks gestation of pregnancy; J45.909 Unspecified asthma, uncomplicated; Z20.822 Contact with and (suspected) exposure to COVID-19; O45.93 Premature separation of placenta, unspecified, third trimester
CPT/HCPCS: 59514; 36410; 36415; 80053; 82803; 85027; 86850; 86900; 86901; 87635; 82565; 84156; 84550; 85025; 88307; J0131; J0456; J0690; J1100; J1885; J2370; J2405; J2590; J3010; J3490

== ENCOUNTER 2021-08-08 01:44 | Outpatient (CLI) | payer MEDICAID, SELFPAY | END 2021-08-08 01:45 | disposition home or self-care (01) | LOC: LBO 01:44 | PROVIDERS: Visit Provider Advanced Practice Midwife ==

== ENCOUNTER → 2021-08-29 00:13 | Outpatient (CLI) | payer MEDICAID, SELFPAY | PROVIDERS: Visit Provider Obstetrics & Gynecology Gynecology ==

== ENCOUNTER 2021-09-21 03:07 | Outpatient (CLI) | payer MEDICAID, SELFPAY ==
[2021-09-21 14:05] LABS: Abs Immature Grans 0.05 10^3/uL (0.0-0.06); Absolute Basophil Count 0.02 10^3/uL (0.0-0.2); Absolute Monocyte Count 0.45 10^3/uL (0.1-0.8); Absolute Neutrophil Count 4.23 10^3/uL (1.2-6.7); Basophils % 0.3; HCT 38.3 % (36.0-46.0); HGB 12.4 g/dL (11.2-15.7); Immature Grans % 0.7; Lymphocytes % 32.2; MCH 27.3 pg (27.0-33.0); MCHC 32.4 % (32.0-36.0); MCV 84 fL (80-95); MPV 9.8 fL (8.0-11.0); Neutrophils % 56.8; Platelet Count 269 10^3/uL (130-400); RBC 4.55 10^6/uL (3.93-5.22); RDW 12.9 % (11.7-14.6); RDW-SD 39.3 fL; WBC 7.45 10^3/uL (4.4-10.8)
[2021-09-22 09:05] LABS: Hepatitis B Surface Ag Negative (Negative)
[2021-09-22 09:36] LABS: Hepatitis C Ab w Rflx HCV PCR Negative (Negative)
[2021-09-22 10:04] LABS: HIV-1/2 Ag & Ab Screen Negative (Negative)
[2021-09-22 12:25] LABS: Varicella IgG Antibody Positive (See Note)
[2021-09-22 12:35] LABS: Rubella IgG Ab (UVM) Positive (See Note)
[2021-09-24 14:53] LABS: Syphilis IgG w/Reflex Nonreactive (Nonreactive)
== END 2021-09-21 03:08 | disposition home or self-care (01) ==
LOC: LBO 03:07
PROVIDERS: Visit Provider Advanced Practice Midwife
DX: O09.522 Supervision of elderly multigravida, second trimester (principal); O09.32 Supervision of pregnancy with insufficient antenatal care, second trimester; Z3A.23 23 weeks gestation of pregnancy
CPT/HCPCS: 36415; 86787; 86803; 86850; 86900; 86901; 87340; 87389; 85025; 86762; 86780

== ENCOUNTER 2021-09-21 14:01 | Outpatient (REF) | payer MEDICAID, SELFPAY ==
--- NOTE | 2021-09-21 13:25 | PAPFT_PTH ---
PATIENT: Douglas Forrester LOC: [facility] U#:[id number] AGE/SX: 35/F ROOM: RE09/21/[address]: aTmmie Holt : 1985 BED: DIS: 09/21/2021 SPEC #: [id number] RECD: 09/21/21 17:12 STATUS: ALOK REQ #: [id number] CONSUELO: 09/21/21 13:[address]: Tammie Holt DEPT: [facility] Cytology RECD BY: Mahnaz Martin ENTERED: 09/21/21 17:12 SP TYPE: PAPFT OTHR DR: Unknown,Unknown Tissues: 1 - CX/ENDOCX FOR PAP SMEARS Procedures: PAP THIN PREP/UVM Screening HPV DNA PROBE Comments: [id number] (CHLAMYDIA/GC)
[2021-09-21 15:01] LABS: *AMPHETAMINES SCREEN URINE Negative (Negative); *BARBITURATES SCREEN URINE Negative (Negative); *BENZODIAZEPINES SCREEN URINE Negative (Negative); Cannabinoids THC Positive (Negative); Cocaine Screen,Urine Negative (Negative); METHADONE URINE SCREEN Negative (Negative); OPIATES URINE SCREEN Negative (Negative)
[2021-09-21 15:02] LABS: Tricyclic Antidepressants Negative (Negative)
[2021-09-22 15:17] LABS: Chlamydia Result Negative (Negative); GC Result Negative (Negative)
[2021-09-27 09:07] LABS: Buprenorphine Negative ng/mL (Cutoff: 5.0); Norbuprenorphine Negative ng/mL (Cutoff: 2.5)
== END 2021-09-21 14:02 | disposition home or self-care (01) ==
LOC: LBN 14:01
PROVIDERS: Visit Provider Advanced Practice Midwife
DX: Z34.92 Encounter for supervision of normal pregnancy, unspecified, second trimester (principal); Z12.4 Encounter for screening for malignant neoplasm of cervix; R87.610 Atypical squamous cells of undetermined significance on cytologic smear of cervix (ASC-US); R87.810 Cervical high risk human papillomavirus (HPV) DNA test positive; Z3A.23 23 weeks gestation of pregnancy
CPT/HCPCS: 80307; 87491; 87591; 88142; 87086; 87624

== ENCOUNTER → 2021-10-03 01:19 | Outpatient (CLI) | payer MEDICAID, SELFPAY ==
--- NOTE | 2021-10-03 06:30 | DI.US_ITS ---
Exam(s) US OB 2-3 TRIMESTER EXAM: US OB 2-3 TRIMESTER CLINICAL HISTORY: ,z34.90,elderly multigravida,O09.529. TECHNIQUE: Transabdominal obstetrical ultrasound was performed. COMPARISON: US US OB 2-3 TRIMESTER from 09/14/2020 FINDINGS: There is a single viable intrauterine gestation with cardiac activity identified-140 bpm. Amniotic fluid: There is a normal amount of amniotic fluid. Placental location: The placenta is posterior grade 1,with no evidence of placenta previa. ANATOMY: A 3 vessel umbilical cord is seen. A four-chamber cardiac view was obtained. Right and left ventricular outflow tracts were imaged. There are no obvious abnormalities of the spinal column evident. There is no obvious abnormal ity of the anterior abdominal wall. stomach and urinary bladder are identified and there is no evidence of hydronephrosis. No abnormalities of the upper lip region are identified. No evidence of choroid plexus cysts i n the brain. Dating parameters place this at approximately 24 weeks and 1 day gestational age. BPD measures 24 weeks and 1 day HC measures 24 weeks and 0 days AC measures 23 weeks and 4 days FL measures 25 weeks and 0 days Estimated weight is 666 gm-1 pound 7 ounces Fetus is at the 7th percentile on the Hadlock scale. IMPRESSION:: Single viable intrauterine gestation which is approximately 24 weeks and 1 day gestatio nal age, implying an ABRAN of January 22, 2022. There are no obvious anomalies evident on today's study. The placenta is posterior-fundal with no evidence of placenta previa. There is a normal amount of amniotic fluid. DATA REPOSITORY:
== END ==
PROVIDERS: Visit Provider Advanced Practice Midwife
DX: O09.522 Supervision of elderly multigravida, second trimester (principal); Z3A.24 24 weeks gestation of pregnancy
CPT/HCPCS: 76805

== ENCOUNTER 2021-10-19 02:28 | Outpatient (CLI) | payer MEDICAID, SELFPAY | END 2021-10-19 02:29 | disposition home or self-care (01) | LOC: LBO 02:28 | PROVIDERS: Visit Provider Advanced Practice Midwife ==

== ENCOUNTER 2021-11-14 03:59 | Outpatient (CLI) | payer MEDICAID, SELFPAY ==
[2021-11-14 11:40] LABS: HCT 36.2 % (36.0-46.0); HGB 11.7 g/dL (11.2-15.7); MCH 27.3 pg (27.0-33.0); MCHC 32.3 % (32.0-36.0); MCV 84 fL (80-95); MPV 9.6 fL (8.0-11.0); Platelet Count 244 10^3/uL (130-400); RBC 4.29 10^6/uL (3.93-5.22); RDW 12.8 % (11.7-14.6); RDW-SD 38.9 fL
[2021-11-14 11:51] LABS: Glucose,1 Hr (Glucola) 108 mg/dL (80-140)
== END 2021-11-14 04:00 | disposition home or self-care (01) ==
LOC: LBO 03:59
PROVIDERS: Visit Provider Advanced Practice Midwife
DX: Z34.93 Encounter for supervision of normal pregnancy, unspecified, third trimester (principal); Z3A.31 31 weeks gestation of pregnancy
CPT/HCPCS: 36415; 82950; 85027

== ENCOUNTER 2021-11-29 18:50 | Outpatient (REF) | payer MEDICAID, SELFPAY ==
[2021-11-29 20:10] LABS: *AMPHETAMINES SCREEN URINE Negative (Negative); *BARBITURATES SCREEN URINE Negative (Negative); *BENZODIAZEPINES SCREEN URINE Negative (Negative); Cannabinoids THC Positive (Negative); Cocaine Screen,Urine Negative (Negative); METHADONE URINE SCREEN Negative (Negative); OPIATES URINE SCREEN Negative (Negative)
[2021-11-29 20:11] LABS: Tricyclic Antidepressants Negative (Negative)
[2021-12-07 15:34] LABS: Buprenorphine Negative ng/mL (Cutoff: 5.0); Norbuprenorphine Negative ng/mL (Cutoff: 2.5)
== END 2021-11-29 18:51 | disposition home or self-care (01) ==
LOC: LBN 18:50
PROVIDERS: Visit Provider Obstetrics & Gynecology
DX: O99.323 Drug use complicating pregnancy, third trimester (principal); O09.523 Supervision of elderly multigravida, third trimester; R82.5 Elevated urine levels of drugs, medicaments and biological substances; Z3A.33 33 weeks gestation of pregnancy
CPT/HCPCS: 80307

== ENCOUNTER 2021-12-27 18:21 | Outpatient (REF) | payer MEDICAID, SELFPAY | END 2021-12-27 18:22 | disposition home or self-care (01) | LOC: NCHCN 18:21 | PROVIDERS: Visit Provider Obstetrics & Gynecology | DX: Z34.93 Encounter for supervision of normal pregnancy, unspecified, third trimester (principal) | CPT/HCPCS: 87081 ==

== ENCOUNTER 2022-01-08 03:27 | Outpatient (CLI) | payer MEDICAID, SELFPAY ==
[2022-01-08 09:57] LABS: Abs Immature Grans 0.02 10^3/uL (0.0-0.06); Absolute Basophil Count 0.01 10^3/uL (0.0-0.2); Absolute Eosinophil Count 0.07 10^3/uL (0.0-0.7); Absolute Lymphocyte Count 1.64 10^3/uL (1.2-3.4); Absolute Monocyte Count 0.42 10^3/uL (0.1-0.8); Absolute Neutrophil Count 2.53 10^3/uL (1.2-6.7); Basophils % 0.2; Eosinophils % 1.5; HCT 37.9 % (36.0-46.0); HGB 12.2 g/dL (11.2-15.7); Immature Grans % 0.4; MCH 26.3 pg (27.0-33.0); MCHC 32.2 % (32.0-36.0); MCV 82 fL (80-95); MPV 10.4 fL (8.0-11.0); Neutrophils % 53.9; Platelet Count 114 10^3/uL (130-400); RBC 4.64 10^6/uL (3.93-5.22); RDW 13.1 % (11.7-14.6); RDW-SD 38.5 fL; WBC 4.69 10^3/uL (4.4-10.8)
== END 2022-01-08 03:28 | disposition home or self-care (01) ==
LOC: LBO 03:27
PROVIDERS: Obstetrics & Gynecology; Visit Provider Obstetrics & Gynecology
DX: Z01.818 Encounter for other preprocedural examination (principal)
CPT/HCPCS: 36415; 86850; 86900; 86901; 85025; J0131; J1100; J1885; J2370; J2405; J3010

== ENCOUNTER 2022-01-09 18:17 | Inpatient (IN) | payer MEDICAID, SELFPAY ==
--- NOTE | 2022-01-09 18:02 | W.PM.OBHPL1 ---
Date of service: 01/09/22 Time of Service: 18:03 Assessment and Plan Assessment and plan (1) Previous delivery affecting : Status: Acute (2) Uterine contractions: Status: Acute Assessment and plan: Patient is in early labor. surveillance is reassuring. Plan is to perform a repeat delivery. She does not desire tubal sterilization at the time of surgery. Informed consent will be reviewed again. (3) Declines (vaginal after ) trial: Status: Acute OB-HPI Labor/Delivery History of Present Illness Reason for Visit: possible labor Chief Complaint: Uterine Contractions; Suspected Rupture of Membranes , Associated Signs and Symptoms of Suspected ROM: Continuous gush of fluid from vagina approximate hour ago. ABRAN Calculator Estimated Delivery Date Method Current WG Current Estimate 01/14/22 Ultrasound #1 39w 2d Other Estimates 01/22/22 LMP (Uncertain) 38w 1d History of Present Expected Delivery Route/Plan Repeat C/S - CNM, to MD @ 32 wks FOB/ - Alexis Powers (has 3 yo daughter living in [place]) BG [place] Specific Issues/Plan 1. previous c/s, close parity, conception @ 3 mo - repeat 2. AMA- offer level 2 US-declines. 3. History of gestational hypertension- ASA recommended daily 4. THC+ on initial UDS- repeat at 32 wks, POSC if positive 5. Asthma - inhaler e-scribed, PCP enrollment recommended. 6. 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 Schedule colpo for 7. Both pt and FOB covid vaccinated. 8. History of anxiety 9. Late entry to care-previous neg CF testing, Declines panorama testing- Anatomy scan WNL. 10. Tandem Nursing w/her 9 month old 11. BMI 30 - early GTT not done due to late entry to care, glucola at 31 weeks-108 Narrative: [facility] She was counseled during her course about possible trial of labor versus repeat delivery. She requested a repeat delivery and declined trial of labor. Called answering service this evening to report loss of blood-tinged fluid while urinating. Patient reports contractions throughout the day that have become more intense after SROM. I recommended that she present for further evaluation. Review of Systems Genitourinary Comments: Light blood-tinged vaginal discharge. Painful regular contractions PFSH All Active Problems (Updated 01/09/22 @ 19:04 by Tamiko Jordan MD) Declines (vaginal after ) trial (Acute) Uterine contractions (Acute) Hx of depression, currently (Acute) Atypical squamous cells of undetermined significance (ASC-US) on cervical Pap smear (Acute) ASC-US/Positive - Needs PP Colpo Positive urine drug screen (Acute) THC at initial visit 09/21/21 Previous delivery affecting (Acute) Advanced maternal age in multigravida (Acute) BMI 31.0-31.9,adult (Acute) (Acute) Screening, anemia, deficiency, iron (Acute) Inadequate social support (Acute) Economic stress (Acute) Anemia affecting first (Acute) Asthma (Chronic) uses inhaler PRN. Medical History (Updated 01/09/22 @ 19:04 by Tamiko Jordan MD) Gestational hypertension Hypertension, condition or complication Positive test anxiety Surgical History (Updated 01/09/22 @ 19:04 by Tamiko Jordan MD) S/P appendectomy age 17 Status post primary low transverse section 01/15/21. Abruptio Placentae. F. Novea. Family History Mother Hypertension Maternal Grandmother Hypertension Maternal Aunt Breast cancer maternal great aunt. Social History Smoking/Tobacco Use Status: Never Smoking risk assessment performed?: Yes Alcohol Intake: never Drug use: Never Substance use type: does not use Do you feel safe at home: Yes Do you feel safe in your relationship?: Yes History History 4 Para 2 Hx # Term Pregnancies 2 Multiple births 0 Hx # Pregnancies 0 Ectopic pregnancies 0 AB induced 0 Hx Number of Living Children 2 AB spontaneous 1 Past Pregnancies Del. Date GA/Weeks # Preg Succ Route Wgt Sex Labor Lgth Anesthesia Location Prov [facility] 02/27/09 40 No vaginal 7 lb 2 oz Female 8 hours [place] 01/15/21 40 No Female regional DO [place] Delivery Date: 02/27/09 Last Updated by: Tammie Holt CNM no medications. hemorrhoids Delivery Date: 01/15/21 Last Updated by: Tawanna Rodríguez IOL for gHTN; C/S non reassuring FHT; abruption. Phoebe Sparks Meds Allergies and Home Medications Allergies Allergy/AdvReac Type Severity Reaction Status Date / Time animal dander Allergy Severe asthma Verified 01/09/22 14:25 tree and shrub pollen Allergy Severe asthma Verified 01/09/22 14:25 Home Medications Medication Instructions Recorded Confirmed Type albuterol sulfate 90 mcg/actuation 2 puff inhalation QID PRN 06/30/20 01/09/22 Rx aerosol inhaler shortness of breath or wheezing #8 grams vits no.126-ferrous fum 1 tab PO DAILY 09/21/21 01/09/22 History 28 mg iron-folic acid 800 mcg tablet (Classic ) aspirin 81 mg tablet,delayed 81 mg PO DAILY #90 tabs 11/09/21 01/09/22 Rx release Exam Physical Exam Vital Signs Reviewed: Yes Constitutional Constitutional: mild distress (Breathing through contractions. Standing resting her arms on the bed.) Detailed Labor and Delivery Exam Dilation: 3 Effacement (%): 75 station: -1 Position: OA Cervix position: mid Consistency: soft Macias Score: Cervical Points Exam 0 1 2 3 Dilation Closed 1-2cm 3-4 cm 5-6cm Effacement 0-30% 40-50% 60-70% 80% Consistency Firm Medium Soft Station -3 -2 -1,0 +1,+2 Position Posterior Mid Anterior Amniotic Membrane Status: Ruptured Rupture Method: Spontaneous Amniotic Fluid: Bloody ([place]-tinged bloody discharge on the exam glove) Monitor Mode: External Contraction Intensity: Mild/Moderate Fetus A Heart Rate Baseline: 140 Monitor Accelerations: 15 X 15 Monitor Decelerations: None Variability: Moderate (6-25 BPM) Presentation: Cephalic Categories: Category I Est. Weight: 3500 lb Date of Membrane Rupture: 01/09/22 Time of Membrane Rupture: 18:00 HEENT Exam HEENT Exam: Normal Neck Exam Neck Exam: Normal Chest/Brest/Axilla Exam Chest Exam: Normal Breast Exam Breast Exam: Not Done Respiratory Exam Respiratory Exam: Normal Cardiovascular Exam Cardiovascular Exam: Normal Abdominal Exam Abdominal Exam: Normal (No focal abdominal tenderness) Rectal Exam Rectal Exam: Not Done Exam Exam: Normal Extremities Exam Extremities Exam: Normal Back/Spine/Pelvis Exam Back Exam: Normal Pelvis Adequate: Yes Skin Exam Skin Exam: Normal Neurological Exam Neurological Exam: Normal Results Results Group Beta Strep: Negative Blood Type: O+ Rubella Status: Immune Varicella Immunity: Immune Lab Results: Patient had labs obtained 01/09/2020. Type and screen is current. Risk Assessment Risk for Shoulder Dystocia Historical/Initial OB: POSITIVE FOR: Pre- BMI>30; NEGATIVE FOR: Pelvic Abnormality, Previous Shoulder Dystocia or Previous Macrosomia Risk for Pre-Eclampsia Date Initiated/Initials: pt to be counseled to start low dose ASA at 12 wks. KM Yes, if one or more: POSTIVE FOR: Hx Pre-E/Gest HTN; NEGATIVE FOR: Chronic HTN, Multiple Gestation, Pre-gestational DM, Renal Disease, Systemic Lupus or APA Syndrome Yes, if 2 or more: POSITIVE FOR: Age>= 35 yrs, BMI>30 and ethinicty; NEGATIVE FOR: Nulliparity, >10yr btwn pregnancies, Mother/Sister w/ Pre-E or Previous IUGR Risk for Post- Hemorrhage Initial: NEGATIVE FOR: Multiple Gestation, Previous PPH, Known Clotting Deficiency, Grand Multiparity or Anticoagulation Risks Reviewed Risks Reviewed Upon Admission: Yes
[2022-01-09 19:04] VITALS: BP 130/85; PULSE 93
[2022-01-09] MEDS: Lactated Ringers 1,000 ML 125 ML IV (19:05)
[2022-01-09] MEDS: AZITHROMYCIN 500 MG in Normal Saline 250 ML 250 MG IVPB (19:06)
[2022-01-09] MEDS: Sodium Citrate 30 ML CUP PO (19:06)
[2022-01-09 19:38] LABS: Source Nasal/Nares
[2022-01-09 20:10] LABS: COVID-19 PCR Negative (Negative)
[2022-01-09] MEDS: ceFAZolin 2 GM/50 ML BAG IVPB (20:10)
--- NOTE | 2022-01-09 20:35 | FALL_PTH ---
PATIENT: Douglas Forrester LOC: [facility] U#:[id number] AGE/SX: 36/F ROOM: OBS.305 RE01/09/[address]: Tamiko Jordan : 1985 BED: A DIS: 01/11/2022 SPEC #: [id number] RECD: 01/10/22 12:37 STATUS: ALOK REQ #: [id number] CONSUELO: 01/09/22 20:[address]: Tamiko Jordan DEPT: Surgical Specimen RECD BY: Mahnaz Martin ENTERED: 01/10/22 12:38 SP TYPE: Fall OTHR DR: Unknown,Unknown Tissues: 1 - FALLOPIAN TUBE (STERILIZATION) 2 - FALLOPIAN TUBE (STERILIZATION) Procedures: GROSS AND MICRO LEVEL 2 Comments: [id number]
[2022-01-09] MEDS: Bupivacaine 0.25% Pres-Free 30 ML VIAL (20:59)
--- NOTE | 2022-01-09 21:26 | W.ANESPOSTOP ---
Postoperative Evaluation Date, Time and Location Date Performed: 01/09/22 Time Performed: 21:31 Patient Location: Obstetrics Vital Signs Most Recent Imported Vital Signs: Most Recent Vital Signs Pulse BP 93 H 130/85 01/09/22 19:04 01/09/22 19:04 Most Recent Manually Entered Vital Signs: Adult Blood Pressure: 128/72 Heart Rate: 88 Respirations: 16 Oxygen Saturation (%): 98 Temperature (C): 36.3 C Pain Score (0-10 Scale): 0 Pain Score Most Recent Pain Score: Most Recent Pain Score Pain Level 8 01/09/22 19:15 Assessment Mental Status: Awake (Alert & Oriented to Patient Baseline) Airway and Respiratory Function: Patent airway with normal (patient baseline) respiratory exam Cardiovascular Function: Hemodynamically Stable Hydration Status: Adequately Hydrated Nausea & Vomiting: No Nausea or Vomiting Pain: Pt. Denies Any Pain Peripheral Nerve Block: Patient did not receive a nerve block
[2022-01-09 21:28] VITALS: BP 128/72; PULSE 88; RESP 16; TEMPC 36.3; O2SAT 98
[2022-01-09 21:45] VITALS: BP 122/65; PULSE 67; RESP 18; TEMP 36.5; O2SAT 98
--- NOTE | 2022-01-09 21:45 | W.PM.OBCSECT ---
Date of service: 01/09/22 Time of Service: 21:45 Operative Note Operative Note Delivery Method: Unscheduled STAT: No and Repeat Previous LT Incision: No Number of previous C-Sections: 1 (Pt declined DAVID. ) DATE OF PROCEDURE: 01/09/22 PRE-OP DIAGNOSES: Uterine contractions, SROM, declines POST-OP DIAGNOSES: same Multiparity desiring permanent sterilization PROCEDURE: Unscheduled repeat low-transverse delivery with bilateral salpingectomy SURGEON: Tamiko Jordan Full Stack Web Developer: Michael Turner Anesthesia: spinal Estimated blood loss (mL): 400 Pathology: other (Right and left fallopian tubes to pathology, cord blood to lab) Complications: None Patient was transported to: floor Patient's condition: stable Indications: G4 now P3 female with spontaneous rupture membranes and onset of uterine contractions at 39W2D EGA. Patient has been scheduled for a repeat delivery with tubal sterilization on 01/10/2021. At the time of admission to the center she was 3 cm dilated contractions every 2 minutes with category 1 heart rate tracing. Decision was made to proceed with the repeat delivery and tubal sterilization. The OR crew was notified. Findings: Viable female in vertex presentation with clear amniotic fluid. Lower uterine segment was intact, although they were 10cc of organized blood clots over the lower uterine segment and in the paracolic gutters when the fascia and visceral peritoneum were incised. Normal placenta with a three-vessel cord. Normal adnexa. Procedure Description: Patient was taken to the operating room she is placed in the sitting position and spinal anesthesia was administered without difficulty. She was then placed in the dorsal supine position with a leftward tilt. SCDs and a Hall catheter to gravity drainage were in place. A vaginal prep with Betadine was performed and the patient was prepped and draped in the usual sterile fashion.Surgical timeout was performed. After a adequate level of anesthesia was achieved a Pfannenstiel skin incision was made approximately 2 cm superior to the pubic symphysis using a scalpel. The scar from the patient's previous Pfannenstiel incision was excised and the underlying subcutaneous tissue dissected using Bovie electrocautery to the level of the rectus fascia. The rectus fascia was then nicked in the midline and the fascial incision extended laterally using curved Bovie electroacautery. 2 Hollie clamps were applied to the inferior rectus fascia and the rectus fascia was dissected off of the underlying rectus muscles using Bovie electrocautery and blunt technique. A similar technique was carried out on the superior rectus fascia. Rectus muscles were then in the midline and the peritoneum entered bluntly. The peritoneal incision was extended laterally using blunt technique. The vesicle-uterine peritoneum over lower uterine segment was incised with curved Rubio scissors and the bladder flap created bluntly. Scalpel was used to incise the lower uterine segment in a transverse fashion. The uterine incision was extended bluntly and the amniotic sac was ruptured and clear amniotic fluid noted. A single gloved hand was placed into the uterine cavity and the head was successfully delivered through the uterine incision followed by the trunk and extremities with the assistance of fundal pressure. The cord was doubly clamped and cut and the infant handed off to the waiting pediatric team. Cord blood was obtained and the placenta was extracted with a combination of fundal massage and gentle cord traction. The uterus was exteriorized cleared of all clots and debris and the uterine incision reapproximated with a running lock suture of 0 Vicryl followed by a second imbricating suture of 0 Vicryl. 4 interrupted sutures of 0 Vicryl were placed along the incision to achieve hemostasis. The uterus was returned to the abdomen and the paracolic gutters cleared of all clots and debris. Uterine incision, the bladder flap and the abdominal wall were all inspected and noted to be hemostatic. Peritoneum was reapproximated with a running suture of 2-0 Vicryl. The rectus fascia was reapproximated with a running suture of 0 Vicryl. space within the subcutaneous tissue closed with a running suture of 2-0 Vicryl. The skin incision was reapproximated with a subcuticular closure of 4-0 Monocryl. Skin incision is and sealed with skin glue. The uterus was massaged for any remaining clots and debris's. The patient was transported to recovery area in stable condition. All sponge, lap, and needle counts correct x2. [place] Gestational Age in Weeks/Days: 39 Weeks and 2 Days Gender: Female weight: 6 lb 7 oz See Nursing Delivery Note for weight and Scores: will be named Yoselyn
[2022-01-09] MEDS: Lactated Ringers 1,000 ML 120 ML IV (22:00)
[2022-01-09] MEDS: diphenhydrAMINE 50 MG/ML VIAL 25 MG IVP (22:27)
[2022-01-09 22:45] VITALS: BP 116/77; PULSE 64; RESP 18; TEMP 36.6; O2SAT 100
[2022-01-09 22:58] VITALS: BP 116/77; PULSE 64; RESP 18; O2SAT 100
[2022-01-09 23:30] VITALS: BP 123/80; PULSE 72; RESP 18; TEMP 36.8; O2SAT 100
[2022-01-10] VITALS (10 sets, daily range): BP systolic 115–145; BP diastolic 76–92; PULSE 73–84; RESP 16–22; TEMP 36.5–36.9; O2SAT 97–100
[2022-01-10] MEDS: NALBUPHINE 5 MG in Normal Saline 50 ML 100 MG IVPB (00:08)
[2022-01-10] MEDS: Lactated Ringers 1,000 ML 120 ML IV (03:32)
[2022-01-10] MEDS: Ketorolac 30 MG/ML VIAL IVP ×3 (03:33→16:03)
[2022-01-10 07:38] LABS: Abs Immature Grans 0.05 10^3/uL (0.0-0.06); Absolute Basophil Count 0.01 10^3/uL (0.0-0.2); Absolute Lymphocyte Count 1.18 10^3/uL (1.2-3.4); Absolute Monocyte Count 0.51 10^3/uL (0.1-0.8); Absolute Neutrophil Count 8.02 10^3/uL (1.2-6.7); Basophils % 0.1; HCT 33.7 % (36.0-46.0); HGB 10.7 g/dL (11.2-15.7); Immature Grans % 0.5; Lymphocytes % 12.1; MCH 26.4 pg (27.0-33.0); MCHC 31.8 % (32.0-36.0); MCV 83 fL (80-95); MPV 11.3 fL (8.0-11.0); Monocytes % 5.2; Neutrophils % 82.1; Platelet Count 105 10^3/uL (130-400); RBC 4.06 10^6/uL (3.93-5.22); RDW 13.1 % (11.7-14.6); RDW-SD 39.5 fL; WBC 9.77 10^3/uL (4.4-10.8)
--- NOTE | 2022-01-10 08:33 | W.PM.OBPNV1 ---
Date of service: 01/10/22 Time of Service: 08:33 Assessment and Plan Assessment and plan (1) Status post primary low transverse section: Assessment and plan: Postop day 1 satisfactory recovery. Successfully breast and formula feeding . Pain well controlled. Patient anticipates being discharged to home tomorrow. (2) Declines (vaginal after ) trial: Status: Acute (3) History of female sterilization: Status: Acute Subjective Subjective Patient comments: No complaints, Pain well controlled, Tolerating diet and Flatus present; no Bowel Movement Patient's Mood: Excellent maternal infant bonding [place] baby status: Doing well, Nursing well, Bottle feeding well (Patient will supplement breast-feeding until milk supply is established.), Rooming in and Strong Bonding Observed feeding status: Breast and formula feeding Exam Physical Exam Vital signs: Temp Pulse Resp BP Pulse Ox 97.7 F 76 17 122/80 100 01/10/22 07:49 01/10/22 07:49 01/10/22 07:49 01/10/22 07:49 01/10/22 07:49 Vital Signs Reviewed: Yes Narrative: Sitting up in bed. Patient has been out of bed Hall catheter remains in place Constitutional Constitutional: no acute distress Respiratory Exam Respiratory Exam: Normal Cardiovascular Exam Cardiovascular Exam: Normal Abdominal Exam Comments: Tegaderm dressing saturated. It was removed Steri-Strips are in place incision is dry. Sterile 4 x 4's applied over incision. Fundal Exam Fundus: Below Umbilicus and Firm Rectal Exam Rectal Exam: Not Done Extremities Exam Extremity Exam: Normal Skin Exam Skin Exam: Normal Neurological Exam Neurological Exam: Normal Psychiatric Exam Psychiatric Exam: Normal Results Hemoglobin/Hematocrit: Hgb 10.7 g/dL (11.2-15.7) L 01/10/22 06:04 Hct 33.7 % (36.0-46.0) L 01/10/22 06:04 Abnormal Lab Findings: Abnormal Labs 01/10/22 06:04 Hgb 10.7 L Hct 33.7 L MCH 26.4 L MCHC 31.8 L Plt Count 105 L MPV 11.3 H Absolute Neutrophils 8.02 H Absolute Lymphocytes 1.18 L
[2022-01-10] MEDS: Normal Saline Flush 10 ML SYR IVP ×3 (10:05→17:58)
[2022-01-10] MEDS: diphenhydrAMINE 50 MG/ML VIAL 25 MG IVP (16:03)
[2022-01-10] MEDS: Naloxone 0.4 MG/ML VIAL IVP (17:57)
[2022-01-11] MEDS: Ibuprofen 600 MG TAB PO (02:25)
[2022-01-11] MEDS: oxyCODONE 5 mg/Acetaminophen 325 mg TAB PO (05:35)
--- NOTE | 2022-01-11 08:15 | W.PM.OBPNV1 ---
Date of service: 01/11/22 Time of Service: 08:15 Assessment and Plan Assessment and plan (1) Status post primary low transverse section: Assessment and plan: Postoperative day #2 status post repeat low transverse section with bilateral salpingectomy for permanent sterilization and contraceptive management. Overall doing well. Discharged home today. Follow-up in the office in 2 and 6 weeks. Prescription sent to the pharmacy for ibuprofen, Percocet, Colace. All questions were answered. (2) History of female sterilization: Status: Acute Subjective Subjective Interval history: Patient seen and examined this morning. Doing well. Desires discharge to home. Understands follow-up in the office in 2 weeks. Overall doing well Patient's Mood: Appropriate baby status: Doing well and Strong Bonding Observed feeding status: Breast and formula feeding Exam Physical Exam Vital signs: Temp Pulse Resp BP Pulse Ox 98.4 F 83 18 127/79 100 01/10/22 21:16 01/10/22 21:16 01/10/22 21:16 01/10/22 21:16 01/10/22 21:16 Vital Signs Reviewed: Yes Constitutional Constitutional: no acute distress and average body habitus HEENT Exam HEENT Exam: Normal Neck Exam Neck Exam: Normal Respiratory Exam Respiratory Exam: Normal Cardiovascular Exam Cardiovascular Exam: Normal Abdominal Exam Abdomen: Tender Comments: No distention. Active bowel sounds Fundal Exam Fundus: Below Umbilicus and Firm Extremities Exam Extremity Exam: Normal; negative Calf Tenderness Skin Exam Skin Exam: Normal Neurological Exam Neurological Exam: Normal Psychiatric Exam Psychiatric Exam: Normal Results Hemoglobin/Hematocrit: Hgb 10.7 g/dL (11.2-15.7) L 01/10/22 06:04 Hct 33.7 % (36.0-46.0) L 01/10/22 06:04 Abnormal Lab Findings: Abnormal Labs 01/10/22 06:04 Hgb 10.7 L Hct 33.7 L MCH 26.4 L MCHC 31.8 L Plt Count 105 L MPV 11.3 H Absolute Neutrophils 8.02 H Absolute Lymphocytes 1.18 L
--- NOTE | 2022-01-11 08:22 | W.PM.OBDISCH ---
Date of service: 01/11/22 Time of Service: 08:23 DS: Diagnosis Discharge Diagnosis (1) Status post primary low transverse section: Asessment and Plan: Patient is postoperative day #2 status post repeat low transverse section due to decline of trial of labor and prior section, and spontaneous rupture with uterine contractions. She also had a bilateral salpingectomy for permanent sterilization. She had an uncomplicated postoperative course and was discharged home postoperative day #2 ambulating, tolerating regular diet and oral pain medication. Her follow-up will be in the office in 2 and 6 weeks. She is currently breast and bottlefeeding her daughter and doing well with bonding. All questions were answered today (2) History of female sterilization: Status: Acute Discharge Plan Disposition Patient Disposition: HOME Condition: Good Discharge Details Reason For Visit: Delivery Admit Date/Time: 01/09/22 18:17 Admit Provider: Tamiko Jordan Attending Provider: Tamiko Jordan Primary Care Provider: Unknown,Unknown Hospital Course Hospital Course: Patient had routine care with women's wellness. She had a scheduled repeat section with salpingectomy scheduled, however 1 day prior, she had spontaneous rupture of membranes and uterine contractions. For this reason she underwent her repeat section with bilateral salpingectomy at that time. She had an uncomplicated postoperative course and was discharged home postoperative day #2 ambulating, tolerating regular diet and oral pain medication with stable vital signs. Her disposition will be to home. She will be seen back in the office in 2 and 6 weeks. All questions were answered today. Her daughter named Yoselyn is doing well. She is breast and bottlefeeding. Home Meds and New Rx's Prescriptions: New ibuprofen 800 mg tablet 800 mg PO Q8H PRNQty: 30 1RF oxycodone-acetaminophen [Percocet] 5-325 mg tablet 1 tab PO Q8H PRNQty: 10 0RF docusate sodium [Colace] 100 mg capsule 100 mg PO BID Qty: 30 0RF No Action albuterol sulfate 90 mcg/actuation HFA aerosol inhaler 2 puff inhalation QID PRN (Reason: shortness of breath or wheezing) Qty: 8 3RF Classic 28 mg iron- 800 mcg tablet 1 tab PO DAILY aspirin 81 mg tablet,delayed release (DR/EC) 81 mg PO DAILY Qty: 90 2RF Rx Instructions: alternate one tablet daily with 2 tablets every other day Discharge Instructions Stand Alone Forms: BC Discharge Instruc Activity:: Pelvic rest and no heavy Equipment/Supplies:: No Equipment Needed Diet:: As Tolerated Discharge Orders Discharge Orders: Discharge Order (Routine); Ordered 01/11/22 Ordered By: Renetta Salamanca OB:DS Summary Contraception Discussed Contraception Discussed: Yes Contraceptive Plan: Tubal Ligation, [place] Gender-Baby A: Female weight: 6 lb 7 oz Status at Discharge Functional status at discharge: independent ambulation Overall status at discharge: patient is progressing back to baseline Mental Status: mental status grossly normal Speech and Movement: speech and movement normal Mood: congruent mood Affect: normal affect Exam Physical Exam Vital signs: Temp Pulse Resp BP Pulse Ox 98.4 F 83 18 127/79 100 01/10/22 21:16 01/10/22 21:16 01/10/22 21:16 01/10/22 21:16 01/10/22 21:16 Narrative: See physical exam from progress note dated 01/11/2022 [facility] All Active Problems (Updated 01/09/22 @ 19:04 by Tamiko Jordan MD) History of female sterilization (Acute) 01/09/2022. Bilateral salpingectomy at time of repeat Declines (vaginal after ) trial (Acute) Uterine contractions (Acute) Hx of depression, currently (Acute) Atypical squamous cells of undetermined significance (ASC-US) on cervical Pap smear (Acute) ASC-US/Positive - Needs PP Colpo Positive urine drug screen (Acute) THC at initial visit 09/21/21 Previous delivery affecting (Acute) Advanced maternal age in multigravida (Acute) BMI 31.0-31.9,adult (Acute) (Acute) Screening, anemia, deficiency, iron (Acute) Inadequate social support (Acute) Economic stress (Acute) Anemia affecting first (Acute) Asthma (Chronic) uses inhaler PRN. Medical History (Updated 01/09/22 @ 19:04 by Tamiko Jordan MD) Gestational hypertension Hypertension, condition or complication Positive test anxiety Surgical History (Updated 01/10/22 @ 08:40 by Tamiko Jordan MD) S/P appendectomy age 17 Status post primary low transverse section 01/15/21. Abruptio Placentae. [place] Ortizkristin. 01/09/2022. Elective repeat delivery. KristoferSindy Harmone. Family History Mother Hypertension Maternal Grandmother Hypertension Maternal Aunt Breast cancer maternal great aunt. Social History Smoking/Tobacco Use Status: Never Smoking risk assessment performed?: Yes Alcohol Intake: never Drug use: Never Substance use type: does not use Do you feel safe at home: Yes Do you feel safe in your relationship?: Yes History History 4 Para 2 Hx # Term Pregnancies 2 Multiple births 0 Hx # Pregnancies 0 Ectopic pregnancies 0 AB induced 0 Hx Number of Living Children 2 AB spontaneous 1 Past Pregnancies Del. Date GA/Weeks # Preg Succ Route Wgt Sex Labor Lgth Anesthesia Location [facility] 02/27/09 40 No vaginal 7 lb 2 oz Female 8 hours [place] 01/15/21 40 No Female regional DO [place] Delivery Date: 02/27/09 Last Updated by: Tammie Holt CNM no medications. hemorrhoids Delivery Date: 01/15/21 Last Updated by: Tawanna Rodríguez IOL for gHTN; C/S non reassuring FHT; abruption. Phoebe Sparks DS: Data Vitals/I&O Vitals and I&O: Vital Signs Temperature 98.4 F 01/10/22 21:16 Pulse 83 01/10/22 21:16 Pulse Rhythm Regular 01/10/22 21:16 Respiratory Rate 18 01/10/22 21:16 Respiratory Depth Normal 01/09/22 19:15 Blood Pressure 127/79 01/10/22 21:16 Blood Pressure Mean 95 01/10/22 21:16 Pulse Oximetry 100 01/10/22 21:16 Oxygen Delivery Method Room Air 01/10/22 10:45 Oxygen Flow Rate 0 01/10/22 10:45 Pain Level 1 01/11/22 05:35 Intake & Output 01/10/22 01/10/22 01/11/22 11:59 23:59 11:59 Intake Total 714.5 / 1714.5 1000 / 1714.5 Output Total 1050 / 1050 Balance -335.5 / 664.5 1000 / 664.5 Intake: IV 714.5 / 1714.5 1000 / 1714.5 Output: Urine 1050 / 1050 Other: Urine Color Yellow Urine Appearance Clear Emesis Description None
== END 2022-01-11 09:10 | disposition home or self-care (01) | DRG 785 ==
PROVIDERS: Admitting Provider Obstetrics & Gynecology Gynecology; Visit Provider Obstetrics & Gynecology Gynecology
PROC: 10D00Z1 Extraction of Products of Conception, Low, Open Approach (ICD-10-PCS; CPT 59514; principal; 2022-01-09 19:45)
DX: O34.211 Maternal care for low transverse scar from previous cesarean delivery (principal); Z37.0 Single live birth; Z3A.39 39 weeks gestation of pregnancy; N85.8 Other specified noninflammatory disorders of uterus; Z30.2 Encounter for sterilization; O99.52 Diseases of the respiratory system complicating childbirth; J45.909 Unspecified asthma, uncomplicated
CPT/HCPCS: 59514; 58700; 36415; 87635; 85025; 88302; J0131; J0456; J0690; J1100; J1200; J1885; J2310; J2370; J2405; J2590; J3010; J3490

== ENCOUNTER 2022-03-07 16:45 | Outpatient (REF) | payer MEDICAID, SELFPAY ==
--- NOTE | 2022-03-07 16:00 | PAPFT_PTH ---
PATIENT: Douglas Forrester LOC: [facility] U#:[id number] AGE/SX: 36/F ROOM: RE03/07/[address]: Tamiko Jordan : 1985 BED: DIS: 03/07/2022 SPEC #: [id number] RECD: 03/07/22 18:29 STATUS: ALOK REQ #: [id number] CONSUELO: 03/07/22 16:[address]: Tamiko Jordan DEPT: [facility] Cytology RECD BY: Mahnaz Martin ENTERED: 03/07/22 18:29 SP TYPE: PAPFT OTHR DR: Unknown,Unknown Tissues: 1 - CX/ENDOCX FOR PAP SMEARS Procedures: PAP THIN PREP/[facility] Screening HPV DNA PROBE Comments: [id number]
== END 2022-03-07 16:46 | disposition home or self-care (01) ==
LOC: LBN 16:45
PROVIDERS: Visit Provider Obstetrics & Gynecology Gynecology
DX: Z12.4 Encounter for screening for malignant neoplasm of cervix (principal); R87.610 Atypical squamous cells of undetermined significance on cytologic smear of cervix (ASC-US); Z11.51 Encounter for screening for human papillomavirus (HPV); R87.810 Cervical high risk human papillomavirus (HPV) DNA test positive
CPT/HCPCS: 88142; 87624

== ENCOUNTER 2022-07-30 15:16 | Outpatient (REF) | payer MEDICAID, SELFPAY ==
--- NOTE | 2022-07-30 14:30 | ENDO_PTH ---
PATIENT: Douglas Forrester LOC: [facility] U#:[id number] AGE/SX: 36/F ROOM: RE07/30/[address]: Tamiko Jordan : 1985 BED: DIS: 07/30/2022 SPEC #: [id number] RECD: 07/31/22 12:24 STATUS: ALOK REQ #: [id number] CONSUELO: 07/30/22 14:[address]: Tamiko Jordan DEPT: Surgical Specimen RECD BY: Mahnaz Martin ENTERED: 07/31/22 12:25 SP TYPE: Endo OTHR DR: Unknown,Unknown Tissues: 1 - ENDOCERVICAL BX/CURRETTE 2 - CERVICAL BIOPSY Procedures: GROSS AND MICRO LEVEL 4 Comments: [id number]
== END 2022-07-30 15:17 | disposition home or self-care (01) ==
LOC: LBN 15:16
PROVIDERS: Visit Provider Obstetrics & Gynecology Gynecology
DX: R87.610 Atypical squamous cells of undetermined significance on cytologic smear of cervix (ASC-US)
CPT/HCPCS: 88305